=== PATIENT | female | born 1970 | race Caucasian/White ===

== ENCOUNTER 2020-07-06 15:31 | Outpatient (REF) | payer OTHER, SELFPAY ==
--- NOTE | 2020-07-06 | MM_ITS ---
EXAMINATION: MM SCREENING DIGITAL BREAST TOMOSYNTHESIS, BILATERAL CLINICAL INFORMATION: Screening. Asymptomatic. The lifetime risk of breast cancer based on the Tyrer-Cuzick Model is 12%. COMPARISON: Mammography: 07/13/2019, 07/01/2019, 06/14/2018, 05/08/2017; ultrasound left breast 07/13/2019 TECHNIQUE: Digital breast tomosynthesis is performed in both the craniocaudal and mediolateral oblique views along with computer-aided detection (CAD). Synthesized 2D images are generated from the tomosynthesis. Additional right CC view is provided. FINDINGS: There are scattered areas of fibroglandular density (ACR BI-RADS breast composition Category b). There is a nodule posterior 5:00 o'clock left breast corresponding to the simple cyst on targeted ultrasound. Neither breast shows interval mass or architectural abnormality or abnormal calcifications. The skin contours are smooth. No significant changes. IMPRESSION: No significant changes from prior studies. Nodule posterior 5:00 left breast corresponding to simple cyst on targeted ultrasound. ASSESSMENT: BI-RADS 2: Benign RECOMMENDATION: Routine annual mammography screening. This patient's information was entered into a reminder system with a target due date for their next mammogram.
== END 2020-07-06 15:32 | disposition home or self-care (01) ==
LOC: HO.MAMMO 15:31
PROVIDERS: Visit Provider Internal Medicine
DX: Z12.31 Encounter for screening mammogram for malignant neoplasm of breast (principal)
CPT/HCPCS: 77063; 77067; 78014

== ENCOUNTER 2021-07-17 08:15 | Outpatient (REF) | payer OTHER, SELFPAY ==
[2021-07-17 09:18] LABS: Hematocrit 41.5 % (37-47); Hemoglobin 13.8 g/dl (12.0-16.0); Mean Corpuscular HGB Conc 33.3 g/dl (31.0-35.0); Mean Corpuscular Hemoglobin 31.9 pg (27.0-33.0); Mean Corpuscular Volume 95.8 fL (80-98); Mean Platelet Volume 10.4 fL (9.4-12.3); Platelet Count 274 X10*3/uL (160-400); Red Blood Count 4.33 X10*6/uL (4.20-5.50); Red Cell Distribution Width 12.3 % (11.0-16.0); White Blood Count 5.5 X10*3/uL (4.8-10.8)
[2021-07-17 09:41] LABS: Anion Gap 11 (12-20); Blood Urea Nitrogen 15 mg/dL (9-16); Calcium 9.6 mg/dL (8.4-10.2); Carbon Dioxide 27 mmol/L (22-29); Chloride 103 mmol/L (96-108); Estimated Glomerular Filt Rate > 60; Glucose Fasting 88 mg/dL (60-99); Potassium 4.4 mmol/L (3.3-5.1); Sodium 137 mmol/L (135-145)
[2021-07-17 09:50] LABS: Alanine Aminotransferase 14 U/L (0-31); Albumin Level 4.6 g/dL (3.5-5.0); Alkaline Phosphatase 55 U/L (39-117); Anion Gap 13 (12-20); Aspartate Amino Transferase 20 U/L (5-31); Bilirubin Direct 0.4 mg/dL (0.0-0.5); Blood Urea Nitrogen 15 mg/dL (9-16); Calcium 9.7 mg/dL (8.4-10.2); Carbon Dioxide 25 mmol/L (22-29); Chloride 103 mmol/L (96-108); Estimated Glomerular Filt Rate > 60; Glucose Fasting 89 mg/dL (60-99); Potassium 4.5 mmol/L (3.3-5.1); Sodium 136 mmol/L (135-145); Total Protein 7.3 g/dL (6.5-8.0)
[2021-07-17 10:34] LABS: Folate 19.2 ng/mL (> or = 4.0); Vitamin B12 1819 pg/mL (200-900)
[2021-07-21 14:26] LABS: Vitamin B6 33.3 ng/mL (2.1-21.7)
[2021-07-22 12:47] LABS: Vitamin D 25-OH, D2 <4 ng/mL; Vitamin D 25-OH, D3 59 ng/mL; Vitamin D 25-OH, Total 59 ng/mL (30-100)
== END 2021-07-17 08:16 | disposition home or self-care (01) ==
LOC: HO.LAB 08:15
PROVIDERS: Visit Provider Hospitalist
DX: Z00.00 Encounter for general adult medical examination without abnormal findings (principal); Z63.79 Other stressful life events affecting family and household
CPT/HCPCS: 36415; 80048; 80053; 80076; 82248; 82306; 82607; 82746; 83735; 84207; 85027

== ENCOUNTER 2021-10-08 09:04 | Outpatient (REF) | payer OTHER, SELFPAY ==
[2021-10-08 13:01] LABS: Folate > 20.0 ng/mL (> or = 4.0); Vitamin B12 1313 pg/mL (200-900)
[2021-10-13 10:47] LABS: Vitamin B6 35.5 ng/mL (2.1-21.7)
== END 2021-10-08 09:05 | disposition home or self-care (01) ==
LOC: HO.WFDLDS 09:04
PROVIDERS: Visit Provider Hospitalist
DX: R74.8 Abnormal levels of other serum enzymes (principal)
CPT/HCPCS: 36415; 82607; 82746; 84207

== ENCOUNTER 2021-10-19 10:04 | Outpatient (REF) | payer OTHER, SELFPAY ==
--- NOTE | ~2021-10-19 | MM_ITS ---
EXAMINATION: MM SCREENING DIGITAL BREAST TOMOSYNTHESIS, BILATERAL CLINICAL INFORMATION: Screening. Asymptomatic. The lifetime risk of breast cancer based on the Tyrer-Cuzick Model is 14%. COMPARISON: Mammography: 07/06/2020, 07/13/2019, 07/01/2019, 06/14/2018, 05/08/2017, ultrasound left breast 07/13/2019 TECHNIQUE: Digital breast tomosynthesis is performed in both the craniocaudal and mediolateral oblique views along with computer-aided detection (CAD). Synthesized 2D images are generated from the tomosynthesis. FINDINGS: There are scattered areas of fibroglandular density (ACR BI-RADS breast composition Category b). There are no significant masses, abnormal calcifications, or other abnormalities. Small cyst again noted mid 5:00 left breast. There is no architectural abnormality. The axilla and skin contours are unremarkable. MM/MM tomosynthesis screening BI IMPRESSION: No mammographic evidence of malignancy. ASSESSMENT: BI-RADS 2: Benign RECOMMENDATION: Routine annual mammography screening. This patient's information was entered into a reminder system with a target due date for their next mammogram.
== END 2021-10-19 10:05 | disposition home or self-care (01) ==
LOC: HO.MAMMO 10:04
PROVIDERS: Visit Provider Obstetrics & Gynecology
DX: Z12.31 Encounter for screening mammogram for malignant neoplasm of breast (principal)
CPT/HCPCS: 77063; 77067

== ENCOUNTER 2022-07-02 15:12 | Outpatient (REF) | payer OTHER, SELFPAY ==
[2022-07-02 16:24] LABS: Vitamin B12 750 pg/mL (200-900)
== END 2022-07-02 15:13 | disposition home or self-care (01) ==
LOC: HO.LAB 15:12
PROVIDERS: PCP Hospitalist; Visit Provider Hospitalist
DX: R74.8 Abnormal levels of other serum enzymes (principal)
CPT/HCPCS: 36415; 82607

== ENCOUNTER 2022-08-06 08:47 | Outpatient (REF) | payer OTHER, SELFPAY ==
[2022-08-06 12:05] LABS: Hematocrit 40.8 % (37.0-47.0); Hemoglobin 13.3 g/dl (12.0-16.0); Mean Corpuscular HGB Conc 32.6 g/dl (31.0-35.0); Mean Corpuscular Hemoglobin 30.9 pg (27.0-33.0); Mean Corpuscular Volume 94.9 fL (80.0-98.0); Mean Platelet Volume 11.1 fL (9.4-12.3); Platelet Count 296 X10*3/uL (160-400); Red Cell Distribution Width 12.4 % (11.0-16.0); White Blood Count 6.9 X10*3/uL (4.8-10.8)
[2022-08-06 12:43] LABS: Alanine Aminotransferase 13 U/L (0-31); Albumin Level 4.5 g/dL (3.5-5.0); Alkaline Phosphatase 59 U/L (39-117); Anion Gap 15 (12-20); Aspartate Amino Transferase 17 U/L (5-31); Bilirubin Total 0.5 mg/dL (0.0-1.0); Blood Urea Nitrogen 13 mg/dL (9-16); Calcium 10.1 mg/dL (8.4-10.2); Carbon Dioxide 26 mmol/L (22-29); Chloride 103 mmol/L (96-108); Cholesterol 198 mg/dL; Estimated Glomerular Filt Rate 54; Glucose Fasting 88 mg/dL (60-99); HDL Cholesterol 73 mg/dL; LDL Cholesterol Calculated 113 mg/dl; Potassium 4.6 mmol/L (3.3-5.1); Sodium 139 mmol/L (135-145); Total Protein 7.1 g/dL (6.5-8.0); Triglycerides 61 mg/dL
[2022-08-06 12:45] LABS: TSH reflex Free T4 1.74 uIU/mL (0.32-4.0)
[2022-08-06 12:57] LABS: Vitamin B12 885 pg/mL (200-900)
[2022-08-10 16:47] LABS: Vitamin B6 30.8 ng/mL (2.1-21.7)
[2022-08-10 16:51] LABS: Vitamin D 25-OH, D2 <4 ng/mL; Vitamin D 25-OH, D3 44 ng/mL; Vitamin D 25-OH, Total 44 ng/mL (30-100)
== END 2022-08-06 08:48 | disposition home or self-care (01) ==
LOC: HO.WFDLDS 08:47
PROVIDERS: Visit Provider Hospitalist
DX: Z00.00 Encounter for general adult medical examination without abnormal findings (principal); R74.8 Abnormal levels of other serum enzymes; G47.9 Sleep disorder, unspecified; Z63.79 Other stressful life events affecting family and household
CPT/HCPCS: 36415; 80053; 80061; 82306; 82607; 84207; 84443; 85027

== ENCOUNTER 2022-11-01 08:10 | Outpatient (REF) | payer OTHER, SELFPAY ==
--- NOTE | ~2022-11-01 | MM_ITS ---
EXAMINATION: MM SCREENING DIGITAL BREAST TOMOSYNTHESIS, BILATERAL CLINICAL INFORMATION: Screening. Asymptomatic. The lifetime risk of breast cancer based on the Tyrer-Cuzick Model is 14%. COMPARISON: Mammography: 10/19/2021, 07/06/2020, 07/13/2019, 07/01/2019, left breast ultrasound 07/13/2019. TECHNIQUE: Digital breast tomosynthesis is performed in both the craniocaudal and mediolateral oblique views along with computer-aided detection (CAD). Synthesized 2D images are generated from the tomosynthesis. FINDINGS: There are scattered areas of fibroglandular density (ACR BI-RADS breast composition Category b). There are no significant masses, abnormal calcifications, or other abnormalities. Parenchymal pattern is similar to prior studies. There is no developing density or architectural abnormality. Small oval cyst posterior 6:00 left breast is decreased in size since 2019. The axilla and skin contours are unremarkable. No significant changes. MM/MM tomosynthesis screening BI IMPRESSION: No mammographic evidence of malignancy. ASSESSMENT: BI-RADS 2: Benign RECOMMENDATION: Routine annual mammography screening. This patient's information was entered into a reminder system with a target due date for their next mammogram.
== END 2022-11-01 08:11 | disposition home or self-care (01) ==
LOC: HO.MAMMO 08:10
PROVIDERS: PCP Hospitalist; Visit Provider Obstetrics & Gynecology
DX: Z12.31 Encounter for screening mammogram for malignant neoplasm of breast (principal)
CPT/HCPCS: 77063; 77067

== ENCOUNTER 2023-08-18 08:22 | Outpatient (AMB) | payer OTHER, SELFPAY ==
[2023-08-18 08:29] VITALS: BP 96/68; PULSE 98; RESP 14; TEMP 37.1; O2SAT 98; BMI 23.4
--- NOTE | 2023-08-18 08:29 | MHC.PC.OV ---
Vital Signs 08/18/23 08:29 Height 5 ft 2 in Weight 128 lb BMI 23.4 BP 96/68 Blood Pressure Location Rt brachial Position Sitting Respiration 14 Pulse 98 Pulse Source Pulse Oximeter Temp 98.8 F Temp Source Oral Pulse Oximetry (%) 98 Oxygen Delivery Method Room Air Intake Visit Reasons: Physical Exam Intake Note: Patient is here for her physical exam. Patient reports she has a cold that started yesterday with a sore throat and a slight cough. Patient reports watering eyes and exhaustion are associated. Trust Operations Assistant Required: No Accompanied by: Self / Same As Patient Allergies oxycodone Allergy (Severe, Verified 08/18/23 08:45) Vomiting prochlorperazine [From Compazine] Allergy (Mild, Verified 08/18/23 08:45) could not move her eyes Medication List - Last Reconciled 08/18/23 by Jaylan Fofana CNP cyclobenzaprine 10 mg PO TID PRN fluticasone propionate 50 mcg/actuation (Flonase Allergy Relief) 1 spray intranasal DAILY melatonin 10 mg PO BEDTIME PRN peg 3350-electrolytes 236-22.74-6.74 -5.86 gram 240 mL PO Q10M Tobacco use date assessed: 08/18/23 Dental Screening Dental Screen Date: 08/18/23 Did you have a dental visit in the last 12 months?: Yes Was dental information given to patient?: Patient has dentist HPI HPI Comments History of Present Illness Details 53-year-old female presents for an extended physical exam and transfer of care Her former PCP is DORETHA who is no longer with the practice. Last office visit and blood work was over a year ago She has past medical history of DJD of left shoulder and sleep disturbance. She reports cold symptoms for the past 3 days. She reports sore throat, nonproductive cough, and fatigue. She took Zicam yesterday and had a negative rapid covid test. She reports positive sick contacts from her workplace. She notes feeling very anxious and tired since June,. She notes that she does not know what's triggering her symptoms. She notes that her symptoms may be attributed be being relocated to a new environment with new coworkers for work in June. She also notes that she has been helping with providing care for her boyfriend's mother who is chronically ill. She admits to exercising 3-4 times weekly. [facility] Surgical History History of appendectomy History of tubal ligation Family History Father No problems noted. 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 1. Little interest or pleasure in doing things: several days 2. Feeling down, depressed, or hopeless: several days 3. Trouble falling or staying asleep, or sleeping too much: nearly every day 4. Feeling tired or having little energy: nearly every day 5. Poor appetite or overeating: more than half the days 6. Feeling bad about yourself - or that you are a failure or have let yourself or your family down: more than half the days 7. Trouble concentrating on things, such as reading the newspaper or watching television: more than half the days 8. Moving or speaking so slowly that other people could have noticed. Or the opposite - being so fidgety or restless that you have been moving around a lot more than usual: several days 9. Thoughts that you would be better off or of hurting yourself in some way: not at all Total score: 15 Depression Screening Interpretation: Positive Depression Screening Follow-up: Existing condition and New Medication prescribed Depression Screening Done: Yes 90882 - PHQ-9 Billing: Yes Source: Developed by Drs. Cuba Valdez, Sade Molina, Tony Berrios and colleagues, with an educational rodrick from [employer] Thrive Questionnaire Date Thrive assessed: 08/18/23 I am a: Patient What is your living situation today?: I have a steady place to live Within the past 12 months, did the food you bought not last and you didn't have the money to get more?: Never true Within the past 12 months, did you worry whether your food would run out before you got money to buy more?: Never true Do you have trouble paying for medicines?: No Do you have trouble getting transportation to medical appointments?: No Do you have trouble paying your heating and electricity bill?: No Do you have trouble taking care of your child, family member or friend?: No Do you have trouble with day-to-day activities such as bathing, preparing meals, shopping, managing finances, etc.?: No Are you currently unemployed and looking for a job?: No Please select the resources that you would like help with: None Currently or been in a relationship where the following occur: no concerns reported AUDIT C Alcohol Use Questionnaire (AUDIT-C) 1. How often do you have a drink containing alcohol?: Monthly or less 2. How many drinks containing alcohol do you have on a typical day when you are drinking?: 1 or 2 3. How often do you have six or more drinks on one occasion?: Never Total Score: 1 SANDIE-7 AMB Questionnaire SANDIE-7 Date SANDIE - 7 assessed: 08/18/23 Feeling nervous, anxious, or on edge: 3 = Nearly every day Not being able to stop or control worryin = Nearly every day Worrying too much about different things: 3 = Nearly every day Trouble relaxin = Nearly every day Being so restless that it is hard to sit still: 3 = Nearly every day Becoming easily annoyed or irritable: 3 = Nearly every day Feeling afraid as if something awful might happen: 3 = Nearly every day Total SANDIE-7 score (0-4 normal; 5-9 mild; 10-14 moderate; 15-21 severe): 21 Source: Developed by Drs. Cuba Valdez, Sade Molina, Tony Berrios and colleagues, with an educational rodrick from [employer] SANDIE-7 Assessment Billing SANDIE-7 Assessment Tool: SANDIE-7 Assessment 82973 Review of Systems Const Details: Const Denies chills, Reports fatigue, Denies fever(s), Denies headache(s) and Denies weakness ENT Reports as per HPI Card Denies chest pain, Denies lightheadedness, Denies dyspnea and Denies other (Palpitations) Resp Denies cough, Denies dyspnea, Denies wheezing and Denies other ( shortness of breath) GI Denies abdominal pain, Denies melena, Denies hematochezia, Denies change in bowel habits, Denies dyspepsia and Denies nausea Denies hematuria and Denies dysuria Musc Denies abnormal gait, Denies myalgias, Denies arthralgias, Denies numbness and Denies tingling Skin/Breast Denies rash, Denies unusual bruising and Denies wounds Neuro Denies abnormal gait, Denies dizziness, Denies headache(s), Denies memory loss, Denies numbness, Denies Sensory deficit (Neuro), Denies tingling and Denies weakness Psych Reports anxiety, Denies depression, Denies memory loss Endo Denies cold intolerance, Reports fatigue, Denies heat intolerance, Denies polydipsia and Denies polyuria Aller/Immun Denies wheezing Physical exam (Primary Care) Vital Signs: Last Vital Signs Temp 98.8 F 08/18/23 08:29 Pulse 98 08/18/23 08:29 Resp 14 08/18/23 08:29 BP 96/68 08/18/23 08:29 Pulse Ox 98 08/18/23 08:29 Oxygen Delivery Method Room Air 08/18/23 08:29 BMI result Body Mass Index 23.4 Tobacco/Smoking Status: Tobacco use Status Tobacco use date assessed 08/18/23 08/18/23 08:40 Patient Tobacco Use Status Former Tobacco user 08/18/23 08:42 e-Cigarette/Vaping Use Never Used 08/18/23 08:42 PHQ-9: PHQ-9 Score PHQ-9: Total score 15 08/18/23 09:30 Depression Screening Interpretation: Positive Depression Screening Follow-up: Existing condition and New Medication prescribed Thrive Assessment: Date of Thrive Assessment Date Thrive assessed 08/18/23 08/18/23 08:46 Currently or been in a relationship where the following occur: no concerns reported Const Other: General: no acute distress and well developed Nutritional Appearance: well nourished Orientation/consciousness: patient oriented x3 HENMT Head is normocephalic Bilateral ear canal and TM are normal Nasal turbinates and oropharynx are pink and moist Sinuses are nontender with palpation No auricular or cervical lymphadenopathy Eyes General: appearance normal, both eyes and all related structures Pupils: Equal, round and reactive pupils present EOM: EOMs intact bilaterally Resp Effort & Inspection: normal respiratory effort Auscultation: clear to auscultation bilaterally Cardio Rate: regular rate Rhythm: regular rhythm Heart sounds: S1 normal heart sound present, S2 normal heart sound present, no gallops, no murmurs and no rubs GI Palpation (GI): No Abdominal aortic bruit present, Soft to palpation, nontender, No hepatosplenomegaly present and No Rebound tenderness present Auscultation: normal bowel sounds General: Yes no CVA tenderness Back/Spine/Pelvis Back: no CVA tenderness Cervical Spine: cervical ROM normal and No Cervical spine tenderness Thoracic/Lumbar Spine: thoraco-lumbar ROM normal, No pain with thoraco-lumbar ROM, No thoracic spinal tenderness and No lumbar spinal tenderness Extrem General: Yes normal to inspection, No edema and No calf tenderness Skin General: warm and dry. Normal skin color. Normal skin turgor Neuro General: patient oriented x3, gait normal and no focal neuro deficit Cranial nerves: Yes Equal, round and reactive pupils present Cognition (Neuro): normal cognition Gait exam (Neuro): Normal gait present Sensory Exam: No Sensory deficit (Neuro) Psych Appearance: grossly normal Affect: normal affect Attitude: cooperative Thought process: Normal thought process present Results AMB Rapid Strep AMB Rapid Strep Negative Last Edit by Ernestina Jerry CMA on 08/18/23 09:31 Assessment and Plan Assessment & Plan (1) Anxiety and depression: Code(s): F41.9 - Anxiety disorder, unspecified; F32.A - Depression, unspecified Plan: Reports increased anxiousness for the past 2 months, no specific triggers, however, symptoms may be related to new work environment/coworkers and chronic illness of a family member She was tearful on and off during the interview She denies SI/HI or domestic violence PHQ-9 and SANDIE-7 scores revealed moderately severe depression and severe anxiety respectively Hydroxyzine ordered. Take as prescribed Routine exercise encouraged She met with the community navigator who will refer her to a therapist Follow-up in 2 weeks or return sooner with worsening or new symptoms Encouraged to get fasting blood work done in preparation for an extended physical exam Verbalized understanding and agreed with treatment plan. Complete physical exam deferred at this time. Routine fasting blood work ordered in preparation for her physical exam. (2) Viral upper respiratory illness: Code(s): J06.9 - Acute upper respiratory infection, unspecified Plan: Likely viral illness though possibly allergies. No exam evidence of bacterial infection. Rapid strep test is negative Viral illness There is no antibiotic medication for viruses.? They must run their course.? Most average 5-7 days but 7-10 days is not uncommon and up to 14 days is still possible.? A cough is often the last symptom to resolve and this can last for weeks in some cases. Rest Hydrate well -? Drink plenty of fluids.? Especially water. Tylenol or ibuprofen for muscle aches, headache, fever/discomfort Cannot rule out COVID-19/RSV/Flu infection Nasal swab acquired and will be sent to the lab Return for new or worsening symptoms Verbalized understanding and agreed with treatment plan. (3) Laboratory tests ordered as part of a complete physical exam (CPE): Code(s): Z00.00 - Encounter for general adult medical examination without abnormal findings Plan: Fasting labs ordered as part of a complete physical exam. Advised to fast for at least 10 hours before getting labs drawn. May drink water Verbalized understanding and agreed with treatment plan. Orders: Orders Complete Blood Count Auto Diff Today Z00.00 - Encounter for general adult medical examination without abnormal findings Comprehensive [place]. Panel Fast Today Z00.00 - Encounter for general adult medical examination without abnormal findings Lipid Panel Today Z00.00 - Encounter for general adult medical examination without abnormal findings TSH reflex Free T4 Today Z00.00 - Encounter for general adult medical examination without abnormal findings UA CC w/rflx Micro + Cult Today Z00.00 - Encounter for general adult medical examination without abnormal findings SARS-CoV2/FLU/RSV Today J06.9 - Acute upper respiratory infection, unspecified AMB Rapid Strep Screen Today J06.9 - Acute upper respiratory infection, unspecified Medications: New hydroxyzine HCl 25 mg PO TID 30 days PRN 90 tabs 1RF anxiety Coding Level of Care Code Est Pt Level 4 (32333) Diagnoses Anxiety and depression F41.9; F32.A Viral upper respiratory illness J06.9 Laboratory tests ordered as part of a complete physical exam (CPE) Z00.00 Additional Codes SANDIE-7 Assessment Billing - SANDIE-7 Assessment Tool: SANDIE-7 Assessment [id number] ([id number])
== END 2023-08-18 09:55 | disposition home or self-care (01) ==
PROVIDERS: PCP Hospitalist; Visit Provider Nurse Practitioner Family
DX: J06.9 Acute upper respiratory infection, unspecified (principal); F41.9 Anxiety disorder, unspecified; F32.A Depression, unspecified
CPT/HCPCS: 96127; 99214

== ENCOUNTER 2023-08-18 09:20 | Outpatient (REF) | payer OTHER, SELFPAY ==
[2023-08-18 14:37] LABS: Influenza A PCR NEGATIVE (Negative); Influenza B PCR NEGATIVE (Negative); Resp Syncy Virus RNA Qual PCR NEGATIVE (Negative); SARS COV2 PCR INHOUSE NEGATIVE (Negative)
== END 2023-08-18 09:21 | disposition home or self-care (01) ==
LOC: HO.LAB 09:20
PROVIDERS: Visit Provider Nurse Practitioner Family
DX: J06.9 Acute upper respiratory infection, unspecified (principal); Z11.52 Encounter for screening for COVID-19
CPT/HCPCS: 0241U

== ENCOUNTER 2023-09-01 06:53 | Outpatient (REF) | payer OTHER, SELFPAY ==
[2023-09-01 07:05] LABS: MANUAL DIFF FLAG NO
[2023-09-01 07:35] LABS: Basophils Absolute Auto 0.1 X10*3/uL (0.0-0.2); Basophils Percent Auto 0.8 % (0-2); Eosinophils Absolute Auto 0.1 X10*3/uL (0.0-0.4); Eosinophils Percent Auto 2.3 % (0-4); Hematocrit 39.4 % (37.0-47.0); Hemoglobin 13.1 g/dl (12.0-16.0); Imm Gran Abs Auto 0.01 X10*3/uL (0.00-0.03); Imm Gran Pct Auto 0.2 % (0.0-0.4); Lymphocytes Absolute Auto 2.9 X10*3/uL (1.2-4.9); Lymphocytes Percent Auto 47.4 % (20-40); Mean Corpuscular HGB Conc 33.2 g/dl (31.0-35.0); Mean Corpuscular Volume 96.1 fL (80.0-98.0); Mean Platelet Volume 10.5 fL (9.4-12.3); Monocytes Absolute Auto 0.6 X10*3/uL (0.1-1.2); Monocytes Percent Auto 9.2 % (2-11); Neutrophils Absolute Auto 2.4 x10*3/uL (2.0-8.3); Neutrophils Percent Auto 40.1 % (45-73); Platelet Count 288 X10*3/uL (160-400); Red Cell Distribution Width 11.8 % (11.0-16.0); White Blood Count 6.1 X10*3/uL (4.8-10.8)
[2023-09-01 07:46] LABS: Appearance Urine Cloudy; Color Urine Yellow; Glucose Urine UA Negative (Negative); Leukocyte Esterase Urine Negative (Negative); Nitrite Urine Negative (Negative); PH 5.5 (5.0-9.0); Specific Gravity - Urine >= 1.030 (1.005-1.025); Urine Blood Negative (Negative); Urine Ketones Trace mg/dL (Negative); Urine Protein Negative (Neg-Trace)
[2023-09-01 08:27] LABS: Alanine Aminotransferase 15 U/L (0-31); Albumin Level 4.2 g/dL (3.5-5.0); Alkaline Phosphatase 58 U/L (39-117); Aspartate Amino Transferase 19 U/L (5-31); Bilirubin Total 0.5 mg/dL (0.0-1.0); Blood Urea Nitrogen 16 mg/dL (9-16); Carbon Dioxide 28 mmol/L (22-29); Cholesterol 185 mg/dL (<200); Estimated Glomerular Filt Rate > 60; Glucose Fasting 91 mg/dL (60-99); HDL Cholesterol 61 mg/dL (>40); LDL Cholesterol Calculated 113 mg/dL (<100); TSH reflex Free T4 2.08 uIU/mL (0.32-4.0); Total Protein 6.7 g/dL (6.5-8.0); Triglycerides 55 mg/dL (<150)
[2023-09-01 08:49] LABS: Anion Gap 10 (12-20); Chloride 107 mmol/L (96-108); Sodium 141 mmol/L (135-145)
== END 2023-09-01 06:54 | disposition home or self-care (01) ==
LOC: HO.LAB 06:53
PROVIDERS: PCP Nurse Practitioner Family; Visit Provider Nurse Practitioner Family
DX: Z00.00 Encounter for general adult medical examination without abnormal findings (principal); Z86.711 Personal history of pulmonary embolism
CPT/HCPCS: 36415; 80053; 80061; 81003; 84443; 85025

== ENCOUNTER 2023-09-01 09:56 | Outpatient (AMB) | payer OTHER, SELFPAY ==
[2023-09-01 10:05] VITALS: BP 114/64; PULSE 84; RESP 13; TEMP 36.4; O2SAT 99; BMI 24.2
--- NOTE | 2023-09-01 10:05 | A.OFFPC_ITS ---
Vital Signs 09/01/23 10:05 Height 5 ft 2 in Weight 132 lb 3 oz BMI 24.2 BP 114/64 Blood Pressure Location Lt brachial Position Sitting Respiration 13 Pulse 84 Pulse Source Pulse Oximeter Temp 97.6 F Temp Source Temporal Artery Scan Pulse Oximetry (%) 99 Oxygen Delivery Method Room Air Intake Visit Reasons: anxiety/depression Intake Note: Patient would like to go over labs that were done and resulted today if there is time. Children Counselor Required: No Accompanied by: Self / Same As Patient Allergies oxycodone Allergy (Severe, Verified 09/01/23 10:43) Vomiting prochlorperazine [From Compazine] Allergy (Mild, Verified 09/01/23 10:43) could not move her eyes Medication List - Last Reconciled 09/01/23 by Jaylan Fofana CNP cyclobenzaprine 10 mg PO TID PRN fluticasone propionate 50 mcg/actuation (Flonase Allergy Relief) 1 spray intranasal DAILY hydroxyzine HCl 25 mg PO TID PRN 30 days melatonin 10 mg PO BEDTIME PRN peg 3350-electrolytes 236-22.74-6.74 -5.86 gram 240 mL PO Q10M Tobacco use date assessed: 08/18/23 Dental Screening Dental Screen Date: 09/01/23 Did you have a dental visit in the last 12 months?: Yes Did you have a dental problem in the last 6 months where you did not have access to dental care?: No Was dental information given to patient?: Patient has dentist HPI HPI Comments History of Present Illness Details 53-year-old female presents for anxiety and depression follow-up She was evaluated at the office for anxiety and depression 2 weeks ago. Hydroxyzine was prescribed She notes that she has been taking Hydroxyzine only at night with significant improvement of her anxiety symptoms. She notes that she has been experiencing frequent hot flashes at night on and off since for the past 3 years. She states that she her symptoms have been frequent recently. She has an appointment with her ob/gym at [facility] tomorrow and plans to discuss her symptoms with her. She states that she was prescribed Gabapentin for hot flashes but was ineffective. [facility] Medical History (Updated 09/01/23 @ 11:00 by Jaylan Fofana CNP) No pertinent past medical history Surgical History History of appendectomy History of tubal ligation Family History Father No problems noted. 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 1. Little interest or pleasure in doing things: several days 2. Feeling down, depressed, or hopeless: several days 3. Trouble falling or staying asleep, or sleeping too much: several days 4. Feeling tired or having little energy: several days 5. Poor appetite or overeating: not at all 6. Feeling bad about yourself - or that you are a failure or have let yourself or your family down: several days 7. Trouble concentrating on things, such as reading the newspaper or watching television: not at all 8. Moving or speaking so slowly that other people could have noticed. Or the opposite - being so fidgety or restless that you have been moving around a lot more than usual: not at all 9. Thoughts that you would be better off or of hurting yourself in some way: not at all Total score: 5 Depression Screening Interpretation: Positive Depression Screening Done: Yes 64462 - PHQ-9 Billing: Yes Source: Developed by Drs. Cuba Valdez, Sade Molina, Tony Berrios and colleagues, with an educational rodrick from [employer]. Thrive Questionnaire Date Thrive assessed: 08/18/23 SANDIE-7 AMB Questionnaire SANDIE-7 Date SANDIE - 7 assessed: 09/01/23 Feeling nervous, anxious, or on edge: 1 = Several days Not being able to stop or control worryin = Several days Worrying too much about different things: 1 = Several days Trouble relaxin = Several days Being so restless that it is hard to sit still: 0 = Not at all Becoming easily annoyed or irritable: 1 = Several days Feeling afraid as if something awful might happen: 1 = Several days Total SANDIE-7 score (0-4 normal; 5-9 mild; 10-14 moderate; 15-21 severe): 6 Source: Developed by Drs. Cuba Valdez, Sade Molina, Tony Berrios and colleagues, with an educational rodrick from [employer]. SANDIE-7 Assessment Billing SANDIE-7 Assessment Tool: SANDIE-7 Assessment 72502 Review of Systems Const Details: Const Denies chills, Denies fatigue, Denies fever(s), Denies headache(s) and Denies weakness ENT Denies dizziness and Denies headache(s) Card Denies chest pain, Denies lightheadedness, Denies dyspnea and Denies other (Palpitations) Resp Denies cough, Denies dyspnea, Denies wheezing and Denies other ( shortness of breath) GI Denies abdominal pain, Denies melena, Denies hematochezia, Denies change in b owel habits, Denies dyspepsia and Denies nausea Denies hematuria and Denies dysuria Musc Denies abnormal gait, Denies myalgias, Denies arthralgias, Denies numbness and Denies tingling Skin/Breast Denies rash, Denies unusual bruising and Denies wounds Neuro Denies abnormal gait, Denies dizziness, Denies headache(s), Denies memory loss, Denies numbness, Denies Sensory deficit (Neuro), Denies tingling and Denies weakness Psych Denies anxiety, Denies depression, Denies memory loss Endo Denies cold intolerance, Denies fatigue, Denies heat intolerance, Denies polydipsia and Denies polyuria Aller/Immun Denies wheezing Physical exam (Primary Care) Vital Signs: Last Vital Signs Temp 97.6 F 09/01/23 10:05 Pulse 84 09/01/23 10:05 Resp 13 09/01/23 10:05 BP 114/64 09/01/23 10:05 Pulse Ox 99 09/01/23 10:05 Oxygen Delivery Method Room Air 09/01/23 10:05 BMI result Body Mass Index 24.2 Tobacco/Smoking Status: Tobacco use Status Tobacco use date assessed 08/18/23 09/01/23 10:11 Patient Tobacco Use Status Former Tobacco user 09/01/23 10:11 e-Cigarette/Vaping Use Never Used 09/01/23 10:11 PHQ-9: PHQ-9 Score PHQ-9: Total score 5 09/01/23 10:15 Depression Screening Interpretation: Positive Thrive Assessment: Date of Thrive Assessment Date Thrive assessed 08/18/23 09/01/23 10:11 Const Other: General: no acute distress and well developed Nutritional Appearance: well nourished Orientation/consciousness: patient oriented x3 HENMT Head: Yes normocephalic and Yes atraumatic Eyes General: appearance normal, both eyes and all related structures Pupils: Equal, round and reactive pupils present EOM: EOMs intact bilaterally Resp Effort & Inspection: normal respiratory effort Auscultation: clear to auscultation bilaterally Cardio Rate: regular rate Rhythm: regular rhythm Heart sounds: S1 normal heart sound present, S2 normal heart sound present, no gallops, no murmurs and no rubs GI Palpation (GI): No Abdominal aortic bruit present, Soft to palpation, nontender, No hepatosplenomegaly present and No Rebound tenderness present Auscultation: normal bowel sounds General: Yes no CVA tenderness Back/Spine/Pelvis Back: no CVA tenderness Cervical Spine: cervical ROM normal and No Cervical spine tenderness Thoracic/Lumbar Spine: thoraco-lumbar ROM normal, No pain with thoraco-lumbar ROM, No thoracic spinal tenderness and No lumbar spinal tenderness Extrem General: Yes normal to inspection, No edema and No calf tenderness Skin General: warm and dry. Normal skin color. Normal skin turgor Lesions: no lesions Rashes: no rashes Trauma: no lacerations or abrasions Wounds: no wounds Nails: normal Neuro General: patient oriented x3, gait normal and no focal neuro deficit Cranial nerves: Yes Equal, round and reactive pupils present Cognition (Neuro): normal cognition Gait exam (Neuro): Normal gait present Sensory Exam: No Sensory deficit (Neuro) Psych Appearance: grossly normal Affect: normal affect Attitude: cooperative Thought process: Normal thought process present Assessment and Plan Assessment & Plan (1) Anxiety and depression: Code(s): F41.9 - Anxiety disorder, unspecified; F32.A - Depression, unspecified Plan: Reports improved anxiety and depression symptoms on hydroxyzine PHQ-9 and SANDIE-7 scores revealed mild depression and anxiety Continue with current treatment regimen Routine exercise encouraged Recent lab results reviewed with the patient: unremarkable Follow-up in 1 month for an extended physical exam Return sooner with worsening or new symptoms Verbalized understanding and agreed with treatment plan (2) Vasomotor symptoms due to menopause: Code(s): N95.1 - Menopausal and female climacteric states Plan: Reports history of hot flashes on and off for the past 3 years. Her symptoms have been more frequent recently. She has an appointment with her translator and interpreter provider to more and intends to discuss the symptoms Encouraged follow-up with translator and interpreter as planned Return with new or worsening symptoms Verbalized understanding and agreed with treatment plan Coding Level of Care Code Est Pt Level 3 (14821) Diagnoses Anxiety and depression F41.9; F32.A Vasomotor symptoms due to menopause N95.1 Additional Codes SANDIE-7 Assessment Billing - SANDIE-7 Assessment Tool: SANDIE-7 Assessment 97339 ([id number])
== END 2023-09-01 11:01 | disposition home or self-care (01) ==
PROVIDERS: PCP Hospitalist; Visit Provider Nurse Practitioner Family
DX: F41.9 Anxiety disorder, unspecified (principal); F32.A Depression, unspecified; N95.1 Menopausal and female climacteric states
CPT/HCPCS: 96127; 99213

== ENCOUNTER 2023-10-08 08:16 | Outpatient (AMB) | payer OTHER, SELFPAY ==
--- NOTE | 2023-10-08 08:18 | MHC.PC.OV ---
Vital Signs 10/08/23 08:24 Height 5 ft 2 in Weight 133 lb 2 oz BMI 24.3 BP 102/56 L Blood Pressure Location Lt brachial Position Sitting Respiration 18 Pulse 66 Pulse Source Pulse Oximeter Pulse Oximetry (%) 99 Oxygen Delivery Method Room Air Intake Visit Reasons: CPE Intake Note: Patient is here for her physical and she reports she has no concerns at this time. Patient wants to inform her provider she has started HRT with her obgyn as of 09/02/23. Treatment Counselor Required: No Accompanied by: Self / Same As Patient Allergies oxycodone Allergy (Severe, Verified 10/08/23 08:44) Vomiting prochlorperazine [From Compazine] Allergy (Mild, Verified 10/08/23 08:44) could not move her eyes Medication List - Last Reconciled 10/08/23 by Jaylan Fofana CNP cyclobenzaprine 10 mg PO TID PRN fluticasone propionate 50 mcg/actuation (Flonase Allergy Relief) 1 spray intranasal DAILY hydroxyzine HCl 25 mg PO TID PRN 30 days peg 3350-electrolytes 236-22.74-6.74 -5.86 gram 240 mL PO Q10M Tobacco use date assessed: 08/18/23 HPI HPI Comments History of Present Illness Details 53-year-old female presents for an extended physical exam She has history of DJD of left shoulder, anxiety, depression, sleep disturbance, and vasomotor symptoms d/t menopause Recent lab results are unrevealing She notes she was recently seen by pit furnace melter and was started on wound replacement therapy for vasomotor symptoms. She notes that her hot flashes are gone. She is sleeping better, has less brain fog, and less anxious and irritable She offers no complaints and denies acute symptoms at this time She has never had a colonoscopy. She notes she will call [facility] gastroenterology to schedule a colonoscopy Last mammogram was on 10/2022: Benign Last pap smear was on 08/2022: normal She notes she has never had the shingrix vaccines She notes she had the flu vaccine in June 2023 [facility] Medical History No pertinent past medical history Surgical History History of appendectomy History of tubal ligation Family History Father No problems noted. 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 1. Little interest or pleasure in doing things: not at all 2. Feeling down, depressed, or hopeless: not at all 3. Trouble falling or staying asleep, or sleeping too much: several days 4. Feeling tired or having little energy: several days 5. Poor appetite or overeating: not at all 6. Feeling bad about yourself - or that you are a failure or have let yourself or your family down: not at all 7. Trouble concentrating on things, such as reading the newspaper or watching television: not at all 8. Moving or speaking so slowly that other people could have noticed. Or the opposite - being so fidgety or restless that you have been moving around a lot more than usual: not at all 9. Thoughts that you would be better off or of hurting yourself in some way: not at all Total score: 2 Depression Screening Interpretation: Negative Depression Screening Done: Yes 00322 - PHQ-9 Billing: Yes Source: Developed by Drs. Cuba Valdez, Sade Molina, Tony Berrios and colleagues, with an educational rodrick from [employer]. Thrive Questionnaire Date Thrive assessed: 08/18/23 I am a: Patient What is your living situation today?: I have a steady place to live Within the past 12 months, did the food you bought not last and you didn't have the money to get more?: Never true Within the past 12 months, did you worry whether your food would run out before you got money to buy more?: Never true Do you have trouble paying for medicines?: No Do you have trouble getting transportation to medical appointments?: No Do you have trouble paying your heating and electricity bill?: No Do you have trouble taking care of your child, family member or friend?: No Do you have trouble with day-to-day activities such as bathing, preparing meals, shopping, managing finances, etc.?: No Are you currently unemployed and looking for a job?: No Are you interested in more education?: No Please select the resources that you would like help with: None Currently or been in a relationship where the following occur: no concerns reported AUDIT C Alcohol Use Questionnaire (AUDIT-C) 1. How often do you have a drink containing alcohol?: Never 3. How often do you have six or more drinks on one occasion?: Never Total Score: 0 SANDIE-7 AMB Questionnaire SANDIE-7 Date SANDIE - 7 assessed: 10/08/23 Feeling nervous, anxious, or on edge: 1 = Several days Not being able to stop or control worryin = Several days Worrying too much about different things: 1 = Several days Trouble relaxin = Several days Being so restless that it is hard to sit still: 0 = Not at all Becoming easily annoyed or irritable: 0 = Not at all Feeling afraid as if something awful might happen: 0 = Not at all Total SANDIE-7 score (0-4 normal; 5-9 mild; 10-14 moderate; 15-21 severe): 4 Source: Developed by Drs. Cuba Valdez, Sade Molina, Tony Berrios and colleagues, with an educational rodrick from [employer]. SANDIE-7 Assessment Billing SANDIE-7 Assessment Tool: SANDIE-7 Assessment 03097 Review of Systems Const Details: Denies chills, Denies fatigue, Denies fever(s), Denies headache(s) and Denies weakness HEENT Denies change in vision, Denies dizziness, Denies headache(s), Denies hearing loss, Denies nasal congestion, Denies sinus pain, Denies sinus pressure and Denies sore throat Card Denies chest pain, Denies lightheadedness, Denies dyspnea and Denies other (palpitations) Resp Denies cough, Denies dyspnea and Denies wheezing GI Denies abdominal pain, Denies melena, Denies hematochezia, Denies change in bowel habits, Denies dyspepsia and Denies nausea Denies hematuria and Denies dysuria Musc Denies abnormal gait, Denies myalgias, Denies arthralgias, Denies numbness and Denies tingling Skin/Breast Denies rash, Denies unusual bruising and Denies wounds Neuro Denies abnormal gait, Denies dizziness, Denies headache(s), Denies memory loss, Denies numbness, Denies Sensory deficit (Neuro), Denies tingling and Denies weakness Psych Denies anxiety, Denies depression and Denies memory loss Endo Denies cold intolerance, Denies fatigue, Denies heat intolerance, Denies polydipsia and Denies polyuria Ed/Lymph Denies easy bleeding and Denies easy bruising Aller/Immun Denies wheezing Physical exam (Primary Care) Vital Signs: Last Vital Signs Pulse 66 10/08/23 08:24 BP 102/56 L 10/08/23 08:24 Pulse Ox 99 10/08/23 08:24 Oxygen Delivery Method Room Air 10/08/23 08:24 BMI result Body Mass Index 24.3 Tobacco/Smoking Status: Tobacco use Status Tobacco use date assessed 08/18/23 10/08/23 08:19 Patient Tobacco Use Status Former Tobacco user 10/08/23 08:32 e-Cigarette/Vaping Use Never Used 10/08/23 08:32 PHQ-9: PHQ-9 Score PHQ-9: Total score 2 10/08/23 08:35 Depression Screening Interpretation: Negative Thrive Assessment: Date of Thrive Assessment Date Thrive assessed 08/18/23 10/08/23 08:19 Currently or been in a relationship where the following occur: no concerns reported Const Other: General: no acute distress, well developed, alert and awake Nutritional Appearance: well nourished Orientation/consciousness: patient oriented x3 HENMT Head: Yes normocephalic and Yes atraumatic Ears: hearing grossly normal bilaterally and TM's normal bilaterally General nose exam: Normal external nose present and Normal nares present Mouth: Normal oral and palatal mucosa present and moist mucous membranes Teeth and gingiva: dentition normal Throat: Yes oropharynx normal Eyes Pupils: Equal, round and reactive pupils present and Pupil accommodation reflex normal EOM: EOMs intact bilaterally Neck Neck: Yes normal visual inspection, Yes no lymphadenopathy and Yes trachea midline Thyroid: Thyroid normal Carotids: no bruits Lymphatic: no lymphadenopathy noted Chest Chest palpation & inspection: normal inspection of the chest Resp Effort & Inspection: normal respiratory effort Auscultation: clear to auscultation bilaterally Cardio Rate: regular rate Rhythm: regular rhythm Heart sounds: S1 normal heart sound present, S2 normal heart sound present, no gallops, no murmurs and no rubs Bruits: no abdominal aortic bruits and no carotid bruits GI Palpation (GI): No Abdominal aortic bruit present, Soft to palpation, nontender, No hepatosplenomegaly present and No Rebound tenderness present Auscultation: normal bowel sounds General: Yes no CVA tenderness Back/Spine/Pelvis Back: no CVA tenderness Cervical Spine: cervical ROM normal and No Cervical spine tenderness Thoracic/Lumbar Spine: thoraco-lumbar ROM normal, No pain with thoraco-lumbar ROM, No thoracic spinal tenderness and No lumbar spinal tenderness Skin General: warm and dry. Normal skin color. Normal skin turgor Lesions: no lesions Rashes: no rashes Trauma: no lacerations or abrasions Wounds: no wounds Nails: normal Neuro General: patient oriented x3, gait normal and CN's II-XI intact bilaterally Cranial nerves: Yes Equal, round and reactive pupils present Cognition (Neuro): normal cognition Gait exam (Neuro): Normal gait present Motor exam (neuro): 5/5 motor strength present throughout Sensory Exam: No Sensory deficit (Neuro) Deep tendon reflexes (DTR's): Right patellar reflex intensity grade: 2+ and Left patellar reflex intensity grade: 2+ Extrem General: Yes normal to inspection, No edema and No calf tenderness Psych Appearance: grossly normal Affect: normal affect Attitude: cooperative Thought process: Normal thought process present Assessment and Plan Assessment & Plan (1) Normal physical examination, routine: Code(s): Z00.00 - Encounter for general adult medical examination without abnormal findings Plan: No significant physical restrictions or limitations noted Continue current treatment regimen Follow-up in 3 months for anxiety and depression or return sooner with symptoms or concerns Verbalized understanding and agreed with treatment plan (2) Anxiety and depression: Code(s): F41.9 - Anxiety disorder, unspecified; F32.A - Depression, unspecified Plan: Reports symptoms significant improvement of anxiety and depression symptoms PHQ-9 and SANDIE-7 scores are normal Take hydroxyzine as prescribed Routine exercise encouraged Follow-up in 3 months or return sooner with worsening or new symptoms Verbalized understanding and agreed with treatment plan (3) Vasomotor symptoms due to menopause: Code(s): N95.1 - Menopausal and female climacteric states Plan: Currently on hormone replacement therapy with significant improvement Continue current treatment regimen Continue follow-up with pit furnace melter as planned Follow-up with symptoms or concerns Verbalized understanding and agreed with treatment plan (4) Vaccine counseling: Code(s): Z71.85 - Encounter for immunization safety counseling Plan: She has not been vaccinated for shingles Instructed on importance of vaccination and encouraged to get vaccinated for shingles Verbalized understanding and agreed with the plan Coding Level of Care Code Est Pt Prev Care 40-64y(60081) Diagnoses Normal physical examination, routine Z00.00 Anxiety and depression F41.9; F32.A Vasomotor symptoms due to menopause N95.1 Vaccine counseling Z71.85 Additional Codes SANDIE-7 Assessment Billing - SANDIE-7 Assessment Tool: SANDIE-7 Assessment 52745 ([id number])
[2023-10-08 08:24] VITALS: BP 102/56; PULSE 66; RESP 18; O2SAT 99; BMI 24.3
== END 2023-10-08 09:00 | disposition home or self-care (01) ==
PROVIDERS: PCP Nurse Practitioner Family; Visit Provider Nurse Practitioner Family
DX: Z00.00 Encounter for general adult medical examination without abnormal findings (principal); F41.9 Anxiety disorder, unspecified; F32.A Depression, unspecified; N95.1 Menopausal and female climacteric states; Z71.85 Encounter for immunization safety counseling
CPT/HCPCS: 99396

== ENCOUNTER 2023-11-14 07:43 | Outpatient (REF) | payer OTHER, SELFPAY | END 2023-11-14 07:44 | disposition home or self-care (01) | LOC: HO.MAMMO 07:43 | PROVIDERS: PCP Nurse Practitioner Family; Visit Provider Nurse Practitioner Family | DX: Z12.31 Encounter for screening mammogram for malignant neoplasm of breast (principal) | CPT/HCPCS: 77063; 77067 ==

== ENCOUNTER → 2023-11-14 07:45 | Outpatient (BNV) | payer OTHER, SELFPAY | PROVIDERS: PCP Nurse Practitioner Family; Visit Provider Radiology Diagnostic Radiology | DX: Z12.31 Encounter for screening mammogram for malignant neoplasm of breast (principal) | CPT/HCPCS: 77063; 77067 ==

== ENCOUNTER 2024-01-08 07:57 | Outpatient (AMB) | payer OTHER, SELFPAY ==
[2024-01-08 08:02] VITALS: BP 108/68; PULSE 81; RESP 13; TEMP 36.6; O2SAT 98; BMI 23.8
--- NOTE | 2024-01-08 08:02 | A.OFFPC_ITS ---
Vital Signs 01/08/24 08:02 Height 5 ft 2 in Weight 130 lb 6 oz BMI 23.8 BP 108/68 Blood Pressure Location Rt brachial Position Sitting Respiration 13 Pulse 81 Pulse Source Pulse Oximeter Temp 97.8 F Temp Source Temporal Artery Scan Pulse Oximetry (%) 98 Oxygen Delivery Method Room Air Intake Visit Reasons: 3 mos anxiety, depression Intake Note: Patient would like refill on cyclobenzaprine. 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 Accompanied by: Self / Same As Patient Allergies oxycodone Allergy (Severe, Verified 01/08/24 08:09) Vomiting prochlorperazine [From Compazine] Allergy (Mild, Verified 01/08/24 08:09) could not move her eyes Medication List - Last Reconciled 01/08/24 by Jaylan Fofana CNP cyclobenzaprine 10 mg PO TID PRN fluticasone propionate 50 mcg/actuation (Flonase Allergy Relief) 1 spray intranasal DAILY hydroxyzine HCl 25 mg PO TID PRN 30 days peg 3350-electrolytes 236-22.74-6.74 -5.86 gram 240 mL PO Q10M Tobacco use date assessed: 01/08/24 Dental Screening Dental Screen Date: 01/08/24 Did you have a dental visit in the last 12 months?: Yes Did you have a dental problem in the last 6 months where you did not have access to dental care?: No Was dental information given to patient?: Patient has dentist HPI HPI Comments History of Present Illness Details 53-year-old female presents for anxiety and depression follow-up She admits to taking hydroxyzine as prescribed without adverse reactions She notes that her anxiety and depression symptoms are well controlled since she started HRT about 5 months ago; she is followed by [facility]. She occasionally takes Hydroxyzine; last does was 6 days ago after a month She offers no complaints and denies acute symptoms at this time [facility] Medical History No pertinent past medical history Surgical History History of appendectomy History of tubal ligation Family History Father No problems noted. 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 1. Little interest or pleasure in doing things: not at all 2. Feeling down, depressed, or hopeless: not at all 3. Trouble falling or staying asleep, or sleeping too much: several days 4. Feeling tired or having little energy: several days 5. Poor appetite or overeating: not at all 6. Feeling bad about yourself - or that you are a failure or have let yourself or your family down: not at all 7. Trouble concentrating on things, such as reading the newspaper or watching television: not at all 8. Moving or speaking so slowly that other people could have noticed. Or the opposite - being so fidgety or restless that you have been moving around a lot more than usual: not at all 9. Thoughts that you would be better off or of hurting yourself in some way: not at all Total score: 2 Depression Screening Interpretation: Negative Depression Screening Done: Yes 19972 - PHQ-9 Billing: Yes Source: Developed by Drs. Cuba Valdez, Sade Molina, Tony Berrios and colleagues, with an educational rodrick from [employer] Thrive Questionnaire Date Thrive assessed: 08/18/23 SANDIE-7 AMB Questionnaire SANDIE-7 Date SANDIE - 7 assessed: 01/08/24 Feeling nervous, anxious, or on edge: 1 = Several days Not being able to stop or control worryin = Several days Worrying too much about different things: 1 = Several days Trouble relaxin = Several days Being so restless that it is hard to sit still: 0 = Not at all Becoming easily annoyed or irritable: 1 = Several days Feeling afraid as if something awful might happen: 0 = Not at all Total SANDIE-7 score (0-4 normal; 5-9 mild; 10-14 moderate; 15-21 severe): 5 Source: Developed by Drs. Cuba Valdez, Sade Molina, Tony Berrios and colleagues, with an educational rodrick from [employer] SANDIE-7 Assessment Billing SANDIE-7 Assessment Tool: SANDIE-7 Assessment 59808 Review of Systems Const Details: Const Denies chills, Denies fatigue, Denies fever(s), Denies headache(s) and Denies weakness ENT Denies dizziness and Denies headache(s) Card Denies chest pain, Denies lightheadedness, Denies dyspnea and Denies other (Palpitations) Resp Denies cough, Denies dyspnea, Denies wheezing and Denies other ( shortness of breath) GI Denies abdominal pain, Denies melena, Denies hematochezia, Denies change in bowel habits, Denies dyspepsia and Denies nausea Denies hematuria and Denies dysuria Musc Denies abnormal gait, Denies myalgias, Denies arthralgias, Denies numbness and Denies tingling Skin/Breast Denies rash, Denies unusual bruising and Denies wounds Neuro Denies abnormal gait, Denies dizziness, Denies headache(s), Denies memory loss, Denies numbness, Denies Sensory deficit (Neuro), Denies tingling and Denies weakness Psych Denies anxiety, Denies depression, Denies memory loss Endo Denies cold intolerance, Denies fatigue, Denies heat intolerance, Denies polydipsia and Denies polyuria Aller/Immun Denies wheezing Physical exam (Primary Care) Vital Signs: Last Vital Signs Temp 97.8 F 01/08/24 08:02 Pulse 81 01/08/24 08:02 Resp 13 01/08/24 08:02 BP 108/68 01/08/24 08:02 Pulse Ox 98 01/08/24 08:02 Oxygen Delivery Method Room Air 01/08/24 08:02 BMI result Body Mass Index 23.8 Tobacco/Smoking Status: Tobacco use Status Tobacco use date assessed 01/08/24 01/08/24 08:11 Patient Tobacco Use Status Never used Tobacco 04/05/24 08:11 e-Cigarette/Vaping Use Never Used 01/08/24 08:11 PHQ-9: PHQ-9 Score PHQ-9: Total score 2 01/08/24 17:13 Depression Screening Interpretation: Negative Thrive Assessment: Date of Thrive Assessment Date Thrive assessed 08/18/23 01/08/24 08:11 Const Other: General: no acute distress and well developed Nutritional Appearance: well nourished Orientation/consciousness: patient oriented x3 HENMT Head: Yes normocephalic and Yes atraumatic Eyes General: appearance normal, both eyes and all related structures Pupils: Equal, round and reactive pupils present EOM: EOMs intact bilaterally Resp Effort & Inspection: normal respiratory effort Auscultation: clear to auscultation bilaterally Cardio Rate: regular rate Rhythm: regular rhythm Heart sounds: S1 normal heart sound present, S2 normal heart sound present, no gallops, no murmurs and no rubs GI Palpation (GI): No Abdominal aortic bruit present, Soft to palpation, nontender, No hepatosplenomegaly present and No Rebound tenderness present Auscultation: normal bowel sounds General: Yes no CVA tenderness Back/Spine/Pelvis Back: no CVA tenderness Cervical Spine: cervical ROM normal and No Cervical spine tenderness Thoracic/Lumbar Spine: thoraco-lumbar ROM normal, No pain with thoraco-lumbar ROM, No thoracic spinal tenderness and No lumbar spinal tenderness Extrem General: Yes normal to inspection, No edema and No calf tenderness Skin General: warm and dry. Normal skin color. Normal skin turgor Neuro General: patient oriented x3, gait normal and no focal neuro deficit Cranial nerves: Yes Equal, round and reactive pupils present Cognition (Neuro): normal cognition Gait exam (Neuro): Normal gait present Sensory Exam: No Sensory deficit (Neuro) Psych Appearance: grossly normal Affect: normal affect Attitude: cooperative Thought process: Normal thought process present Assessment and Plan Assessment & Plan (1) Anxiety and depression: Code(s): F41.9 - Anxiety disorder, unspecified; F32.A - Depression, unspecified Plan: PHQ-9 score is normal. 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 10 mg PO TID PRN 90 tabs 1RF muscle spasm M19.012 - Primary osteoarthritis, left shoulder Coding Level of Care Code Est Pt Level 3 (13053) Diagnoses Anxiety and depression F41.9; F32.A Additional Codes SANDIE-7 Assessment Billing - SANDIE-7 Assessment Tool: SANDIE-7 Assessment 66650 ([id number])
== END 2024-01-08 08:20 | disposition home or self-care (01) ==
PROVIDERS: PCP Nurse Practitioner Family; Visit Provider Nurse Practitioner Family
DX: F41.9 Anxiety disorder, unspecified (principal); F32.A Depression, unspecified
CPT/HCPCS: 99213

== ENCOUNTER 2024-05-16 07:49 | Outpatient (AMB) | payer BC, SELFPAY ==
--- NOTE | 2024-05-16 08:00 | MHC.PC.OV ---
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 Is last menstrual period known: Yes Last menstrual period: 12/16/23 Post menopausal: Yes Patient : No Allergies oxycodone Allergy (Severe, Verified 05/16/24 08:15) Vomiting prochlorperazine [From Compazine] Allergy (Mild, Verified 05/16/24 08:15) could not move her eyes Medication List - Last Reconciled 05/16/24 by Jaylan Fofana CNP cyclobenzaprine 10 mg PO TID PRN fluticasone propionate 50 mcg/actuation (Flonase Allergy Relief) 1 spray intranasal DAILY hydroxyzine HCl 25 mg PO TID PRN 30 days norethindrone ac-eth estradiol 1-5 mg-mcg (Fyavolv) 1 tab PO DAILY peg 3350-electrolytes 236-22.74-6.74 -5.86 gram 240 mL PO Q10M Tobacco use date assessed: 05/16/24 Dental Screening Dental Screen Date: 05/16/24 Did you have a dental visit in the last 12 months?: Yes Did you have a dental problem in the last 6 months where you did not have access to dental care?: No Was dental information given to patient?: Patient has dentist HPI HPI Comments History of Present Illness Details 53-year-old female presents for anxiety and depression follow-up She admits to taking hydroxyzine as prescribed without adverse reactions She reports controlled anxiety and depressive symptoms. She notes that she generally eats and sleeps wells. She has been exercising routinely. 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 She is a bit anxious to resume work next Thursday She offers no complaints and denies acute symptoms at this time [facility] Medical History No pertinent past medical history Surgical History History of appendectomy History of tubal ligation Family History Father No problems noted. 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 1. Little interest or pleasure in doing things: not at all 2. Feeling down, depressed, or hopeless: not at all 3. Trouble falling or staying asleep, or sleeping too much: several days 4. Feeling tired or having little energy: several days 5. Poor appetite or overeating: not at all 6. Feeling bad about yourself - or that you are a failure or have let yourself or your family down: several days 7. Trouble concentrating on things, such as reading the newspaper or watching television: not at all 8. Moving or speaking so slowly that other people could have noticed. Or the opposite - being so fidgety or restless that you have been moving around a lot more than usual: not at all 9. Thoughts that you would be better off or of hurting yourself in some way: not at all Total score: 3 Depression Screening Interpretation: Negative Depression Screening Done: Yes 61699 - PHQ-9 Billing: Yes Source: Developed by Drs. Cuba Valdez, Sade Molina, Tony Berrios and colleagues, with an educational rodrick from [email or web address] Thrive Questionnaire Date Thrive assessed: 08/18/23 AUDIT C Alcohol Use Questionnaire (AUDIT-C) 1. How often do you have a drink containing alcohol?: 2-4 times a month 2. How many drinks containing alcohol do you have on a typical day when you are drinking?: 1 or 2 3. How often do you have six or more drinks on one occasion?: Never Total Score: 2 SANDIE-7 AMB Questionnaire SANDIE-7 Date SANDIE - 7 assessed: 05/16/24 Feeling nervous, anxious, or on edge: 1 = Several days Not being able to stop or control worryin = Several days Worrying too much about different things: 1 = Several days Trouble relaxin = Several days Being so restless that it is hard to sit still: 0 = Not at all Becoming easily annoyed or irritable: 1 = Several days Feeling afraid as if something awful might happen: 0 = Not at all Total SANDIE-7 score (0-4 normal; 5-9 mild; 10-14 moderate; 15-21 severe): 5 Source: Developed by Drs. Cuba Valdez, Sade Molina, Tony Berrios and colleagues, with an educational rodrick from [email or web address]. SANDIE-7 Assessment Billing SANDIE-7 Assessment Tool: SANDIE-7 Assessment 74269 Review of Systems Const Details: Const Denies chills, Denies fatigue, Denies fever(s), Denies headache(s) and Denies weakness ENT Denies dizziness and Denies headache(s) Card Denies chest pain, Denies lightheadedness, Denies dyspnea and Denies other (Palpitations) Resp Denies cough, Denies dyspnea, Denies wheezing and Denies other ( shortness of breath) GI Denies abdominal pain, Denies melena, Denies hematochezia, Denies change in bowel habits, Denies dyspepsia and Denies nausea Denies hematuria and Denies dysuria Musc Denies abnormal gait, Denies myalgias, Denies arthralgias, Denies numbness and Denies tingling Skin/Breast Denies rash, Denies unusual bruising and Denies wounds Neuro Denies abnormal gait, Denies dizziness, Denies headache(s), Denies memory loss, Denies numbness, Denies Sensory deficit (Neuro), Denies tingling and Denies weakness Psych Denies anxiety, Denies depression, Denies memory loss Endo Denies cold intolerance, Denies fatigue, Denies heat intolerance, Denies polydipsia and Denies polyuria Aller/Immun Denies wheezing Physical exam (Primary Care) Vital Signs: Last Vital Signs Temp 98.7 F 05/16/24 08:11 Pulse 58 05/16/24 08:11 Resp 16 05/16/24 08:11 BP 102/74 05/16/24 08:11 Pulse Ox 99 05/16/24 08:11 Oxygen Delivery Method Room Air 05/16/24 08:11 BMI result Body Mass Index 24.9 Tobacco/Smoking Status: Tobacco use Status Tobacco use date assessed 05/16/24 05/16/24 08:11 Patient Tobacco Use Status Never used Tobacco 05/16/24 08:02 e-Cigarette/Vaping Use Never Used 05/16/24 08:02 PHQ-9: PHQ-9 Score PHQ-9: Total score 3 05/16/24 08:12 Depression Screening Interpretation: Negative Thrive Assessment: Date of Thrive Assessment Date Thrive assessed 08/18/23 05/16/24 08:02 Const Other: General: no acute distress and well developed Nutritional Appearance: well nourished Orientation/consciousness: patient oriented x3 HENMT Head: Yes normocephalic and Yes atraumatic Eyes General: appearance normal, both eyes and all related structures Pupils: Equal, round and reactive pupils present EOM: EOMs intact bilaterally Resp Effort & Inspection: normal respiratory effort Auscultation: clear to auscultation bilaterally Cardio Rate: regular rate Rhythm: regular rhythm Heart sounds: S1 normal heart sound present, S2 normal heart sound present, no gallops, no murmurs and no rubs GI Palpation (GI): No Abdominal aortic bruit present, Soft to palpation, nontender, No hepatosplenomegaly present and No Rebound tenderness present Auscultation: normal bowel sounds General: Yes no CVA tenderness Back/Spine/Pelvis Back: no CVA tenderness Cervical Spine: cervical ROM normal and No Cervical spine tenderness Thoracic/Lumbar Spine: thoraco-lumbar ROM normal, No pain with thoraco-lumbar ROM, No thoracic spinal tenderness and No lumbar spinal tenderness Extrem General: Yes normal to inspection, No edema and No calf tenderness Skin General: warm and dry. Normal skin color. Normal skin turgor Neuro General: patient oriented x3, gait normal and no focal neuro deficit Cranial nerves: Yes Equal, round and reactive pupils present Cognition (Neuro): normal cognition Gait exam (Neuro): Normal gait present Sensory Exam: No Sensory deficit (Neuro) Psych Appearance: grossly normal Affect: normal affect Attitude: cooperative Thought process: Normal thought process present Assessment and Plan Assessment & Plan (1) Anxiety and depression: Code(s): F41.9 - Anxiety disorder, unspecified; F32.A - Depression, unspecified Plan: Controlled anxiety and depressive symptoms SANDIE-7 score revealed mild anxiety. PHQ-9 score is normal Continue to take hydroxyzine as prescribed Routine exercise encouraged Follow-up in 4 months or sooner with symptoms or concerns Verbalized understanding and agreed with the treatment plan Coding Level of Care Code Est Pt Level 4 (32792) Diagnoses Anxiety and depression F41.9; F32.A Additional Codes SANDIE-7 Assessment Billing - SANDIE-7 Assessment Tool: SANDIE-7 Assessment 42730 ([id number])
[2024-05-16 08:11] VITALS: BP 102/74; PULSE 58; RESP 16; TEMP 37.1; O2SAT 99; BMI 24.9
== END 2024-05-16 08:25 | disposition home or self-care (01) ==
PROVIDERS: PCP Nurse Practitioner Family; Visit Provider Nurse Practitioner Family
DX: F41.9 Anxiety disorder, unspecified (principal); F32.A Depression, unspecified
CPT/HCPCS: 96127; 99214

== ENCOUNTER 2024-06-16 07:07 | Day surgery (SDC) | payer BC, SELFPAY ==
[2024-06-14 14:07] VITALS: BMI 24.9
--- NOTE | 2024-06-15 08:53 | HO.ANESPROP2 ---
Documented by User: Ligia Cortez NP 06/15/24 08:53 HPI - Anesthesia Eval Consult details Narrative: 53yo F for Colonoscopy PMFSH Active Problems Active Problems: All Active Problems Vaccine counseling (Acute) Normal physical examination, routine (Acute) Vasomotor symptoms due to menopause (Acute) Viral upper respiratory illness (Acute) Anxiety and depression (Acute) Laboratory tests ordered as part of a complete physical exam (CPE) (Acute) DJD of left shoulder (Acute) Screen for colon cancer (Acute) Screening for breast cancer (Acute) Abnormal laboratory test (Acute) Normal physical exam (Acute) Elevated vitamin B12 level (Acute) Seasonal allergies (Acute) Annual physical exam (Acute) Stress due to illness of family member (Acute) Sleep disturbance (Acute) Past Medical History Medical History (Updated 06/14/24 @ 13:58 by Katarina Amado RN) DJD of left shoulder Anxiety and depression Family History Family History Father No problems noted. Mother Cervical disc disease Back pain Brother Down syndrome Hypertension Osteoarthritis Surgical History Surgical History History of appendectomy History of tubal ligation Social History Social History Household Members: Significant Other Household Members Other:: Dog Housing: House Are you a primary manager intensive care to a significant other at home: No Do you presently have visiting nurse or other home services: No Alcohol intake: current Alcohol intake frequency: holidays/special occasions only Patient Tobacco Use Status: Never used Tobacco e-Cigarette/Vaping Use: Never Used Have you been hit, kicked, punched, or otherwise hurt by someone within the past year? 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 Current occupational exposures/hazards: No Sexual orientation: Unable to collect Gender identity: Unable to collect Cognitive needs: No Hearing needs: Yes Vision needs: No Meds Allergies Allergy/AdvReac Type Severity Reaction Status Date / Time oxycodone Allergy Severe Vomiting Verified 06/16/24 08:14 prochlorperazine Allergy Mild could not Verified 06/16/24 08:14 [From Compazine] move her eyes Home Medications ?Medication ?Instructions ?Recorded ?Confirmed ?Last Taken ?Type fluticasone propionate 50 1 spray intranasal DAILY 08/08/20 06/14/24 Unknown History mcg/actuation nasal spray,suspension (Flonase Allergy Relief) norethindrone acetate 1 mg-ethinyl 1 tab PO DAILY 01/12/24 06/14/24 Unknown History estradiol 5 mcg tablet (Fyavolv) Exam Height,Weight and Vital Signs: Height 5 ft 2 in Weight 61.689 kg Assessment and Plan Assessment Anesthesia Assessment: Chart Reviewed Documented by User: Thien Huerta MD 06/16/24 08:20 COUNTS INCLUDE 234 BEDS AT THE [facility] Past Medical History Medical History (Updated 06/14/24 @ 13:58 by Katarina Amado RN) DJD of left shoulder Anxiety and depression Family History Family History Father No problems noted. Mother Cervical disc disease Back pain Brother Down syndrome Hypertension Osteoarthritis Family history of problems with anesthesia: No Surgical History Surgical History History of appendectomy History of tubal ligation History of Problems with Anesthesia: No Social History Social History Household Members: Significant Other Household Members Other:: Dog Housing: House Are you a primary manager intensive care to a significant other at home: No Do you presently have visiting nurse or other home services: No Alcohol intake: current Alcohol intake frequency: holidays/special occasions only Patient Tobacco Use Status: Never used Tobacco e-Cigarette/Vaping Use: Never Used Have you been hit, kicked, punched, or otherwise hurt by someone within the past year? 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 Current occupational exposures/hazards: No Sexual orientation: Unable to collect Gender identity: Unable to collect Cognitive needs: No Hearing needs: Yes Vision needs: No Meds Allergies Allergy/AdvReac Type Severity Reaction Status Date / Time oxycodone Allergy Severe Vomiting Verified 06/16/24 08:14 prochlorperazine Allergy Mild could not Verified 06/16/24 08:14 [From Compazine] move her eyes Home Medications ?Medication ?Instructions ?Recorded ?Confirmed ?Last Taken ?Type fluticasone propionate 50 1 spray intranasal DAILY 08/08/20 06/14/24 Unknown History mcg/actuation nasal spray,suspension (Flonase Allergy Relief) norethindrone acetate 1 mg-ethinyl 1 tab PO DAILY 01/12/24 06/14/24 Unknown History estradiol 5 mcg tablet (Fyavolv) Exam Airway Mallampati Class: I TM Dist: >3cm Neck ROM: Full Loose/Missing/Broken Teeth: No Heart: ok Lungs: ok Assessment and Plan Assessment Anesthesia Assessment: Anesthesia Plan Discussed Final Anesthetic Review Family History of Problems with Anesthesia: No History of Problems with Anesthesia: No NPO: Yes ASA Class: I Final Preanesthetic Review: No Changes in Pt Med Stat, Meds/Allgs Chart Reviewed, Consent Obtained/Reviewed and Anes Risks/Benef Reviewed Patient Risk: Low Procedure Risk: Low Anesthetic Plan Anesthetic Plan: MAC: and Agree w/ Assess. and Plan Disposition: Standard PACU
[2024-06-16 07:14] VITALS: BMI 24.6
[2024-06-16] MEDS: Lactated Ringers 1,000 ML 100 ML IVCONT (07:21)
[2024-06-16 07:28] VITALS: BP 113/73; PULSE 73; RESP 18; TEMP 36.7; O2SAT 100
--- NOTE | 2024-06-16 08:01 | P.HPSUR_ITS ---
Pre-Procedural Eval Section A - 24 Hr Update-Section A only Date of Service: 06/16/24 Section B - Complete if H&P > 30 days Chief Complaint: Encounter for screening for malignant neoplasm of Relevant Family History (Specify if Yes): No Relevant Social History: None Present Medications: see Short Stay Collaborative assessment Medical History: Significant History (DJD of left shoulder Anxiety and depress ion) History of Previous Operations: Relevant previous surgery/procedure and date(s) ( History of appendectomy History of tubal ligation) Allergies: Allergies Allergy/AdvReac Type Severity Reaction Status Date / Time oxycodone Allergy Severe Vomiting Verified 05/16/24 08:15 prochlorperazine Allergy Mild could not Verified 05/16/24 08:15 [From Compazine] move her eyes Review of Systems Sugical H&P ROS: Negative: Constitution, Cardiovascular, Respiratory, Neurological, Psychiatric, Hem-Onc, Allergic/Immunologic, Gastrointestinal, Genitourinary, Musculoskeletal, Integumentary, Endocrine and Eyes/Ears/Nose/Throat Exam Surgical H&P Exam: Normal: HEENT, Normal: Heart, Normal: Lungs, Normal: Extremities, Normal: Abdomen, Normal: Skin and Normal: Neurological Plan Diagnosis/Plan: Unchanged I have reviewed the history and physical and performed a pertinent physical examination on my patient. No changes have occurred unless specified. Time Spent With Patient Time: Total time managing care of this patient today ____ minutes.
--- NOTE | 2024-06-16 08:09 | P.OPN-COLO_ITS ---
Colonoscopy Operative Note Operative Note Date of Service: 06/16/24 Narrative: Operative Information Procedure Description: Colonoscopy Indication: screening Anesthesia: MAC COLONOSCOPY Instrument: Olympus variable stiffness pediatric scope 190L Colonoscopy Monitoring: Vital signs and clinical assessment, continuous EKG monitoring, Pulse oximetry, Carbon Dioxide monitoring and blood pressure monitoring were done throughout the procedure. Colon withdrawal time was 9 minutes. Procedure: The patient was placed in the left lateral decubitis position and pre-procedure medications were administered. After a digital rectal examination of the ano-rectum, the video colonoscope was inserted into the rectum and advanced through the colon to the cecum/TI. The colonoscope was slowly withdrawn in a retrograde panoramic fashion and the colon mucosa was carefully examined including a retroflexed view of the rectum. Findings and interventions are described below. Procedure Difficulty: easy Findings: Terminal Ileum-normal Cecum:normal right sided retroflexion- 6-8 mm sessile polyp removed with cold snare Ascending Colon: normal Transverse Colon -normal Descending Colon:normal Sigmoid Colon: mild diverticulosis Rectum: Retroflexion with small internal hemorrhoids seen, grade I, 4-5 mm sessile polyp removed with cold forceps Anorectum - normal Intervention: cold snare, cold forceps Colon preparation: [place] Bowel Preparation Scale Right colon; 2 Transverse colon: 2 Left colon; 2 (0 = Unprepared colon segment with mucosa not seen due to solid stool that cannot be cleared. 1 = Portion of mucosa of the colon segment seen, but other areas of the colon segment not well seen due to staining, residual stool and/or opaque liquid. 2 = Minor amount of residual staining, small fragments of stool and/or opaque liquid, but mucosa of colon segment seen well. 3 = Entire mucosa of colon segment seen well with no residual staining, small fragments of stool or opaque liquid) Impression and Post Procedure Diagnosis: diverticulosis colon polyps internal hemorrhoids Plan: High fiber diet leaflet Avoid straining at stool, epsom salts and sitz bath, anusol supps or cream Repeat Colonoscopy in 5 years if adenomatous polyps, 10 yrs if hyperplastic or earlier if clinically indicated Above findings were reviewed with the patient and relevant handouts were provided if indicated.
[2024-06-16 08:38] VITALS: BP 97/57; PULSE 68; RESP 18; TEMP 36.2; O2SAT 99
[2024-06-16 08:53] VITALS: BP 113/74; PULSE 69; RESP 16; O2SAT 100
[2024-06-16 09:06] VITALS: BP 110/65; PULSE 82; RESP 16; TEMP 36.3; O2SAT 98
== END 2024-06-16 09:20 | disposition home or self-care (01) ==
PROVIDERS: PCP Nurse Practitioner Family; Visit Provider Internal Medicine Gastroenterology
PROC: 0DJD8ZZ Inspection of Lower Intestinal Tract, Via Natural or Artificial Opening Endoscopic (ICD-10-PCS; CPT 45378; principal; 2024-06-16 08:10)
DX: Z12.11 Encounter for screening for malignant neoplasm of colon (principal); D12.8 Benign neoplasm of rectum; K63.5 Polyp of colon; K57.30 Diverticulosis of large intestine without perforation or abscess without bleeding; K64.0 First degree hemorrhoids; M19.012 Primary osteoarthritis, left shoulder; R74.8 Abnormal levels of other serum enzymes; F41.8 Other specified anxiety disorders; Z79.51 Long term (current) use of inhaled steroids; Z79.899 Other long term (current) drug therapy; Z88.5 Allergy status to narcotic agent; Z88.8 Allergy status to other drugs, medicaments and biological substances; Z98.890 Other specified postprocedural states; Z87.891 Personal history of nicotine dependence
CPT/HCPCS: 45385; 45380; 88305; J2704

== ENCOUNTER → 2024-06-16 07:07 | Outpatient (BNV) | payer BC, SELFPAY | PROVIDERS: PCP Nurse Practitioner Family; Visit Provider Internal Medicine Gastroenterology | DX: Z12.11 Encounter for screening for malignant neoplasm of colon (principal); D12.8 Benign neoplasm of rectum; K57.30 Diverticulosis of large intestine without perforation or abscess without bleeding; K64.0 First degree hemorrhoids; K63.5 Polyp of colon | CPT/HCPCS: 45380; 45385 ==

== ENCOUNTER 2024-11-23 09:26 | Outpatient (AMB) | payer BC, SELFPAY ==
--- NOTE | 2024-11-23 09:28 | MHC.PC.OV ---
Vital Signs 11/23/24 09:35 Height 5 ft 2 in Weight 134 lb 6 oz BMI 24.6 BP 107/52 L Blood Pressure Location Rt brachial Position Sitting Respiration 16 Pulse 67 Pulse Source Pulse Oximeter Temp 98.6 F Temp Source Oral Pulse Oximetry (%) 99 Oxygen Delivery Method Room Air Intake Visit Reasons: 4 mos anxiety, depression Intake Note: patient here for 4 moth follow up on anxiety and depression Ehs Teacher Required: No Is last menstrual period known: Yes (spotted for 3 days) Last menstrual period: 11/09/24 Post menopausal: No Patient : No Allergies oxycodone Allergy (Severe, Verified 11/23/24 09:58) Vomiting prochlorperazine [From Compazine] Allergy (Mild, Verified 11/23/24 09:58) could not move her eyes Medication List - Last Reconciled 11/23/24 by Jaylan Fofana CNP cyclobenzaprine 10 mg PO TID PRN fluticasone propionate 50 mcg/actuation (Flonase Allergy Relief) 1 spray intranasal DAILY hydroxyzine HCl 25 mg PO TID PRN 30 days norethindrone ac-eth estradiol 1-5 mg-mcg (Fyavolv) 1 tab PO DAILY Tobacco use date assessed: 11/23/24 Dental Screening Dental Screen Date: 11/23/24 Did you have a dental visit in the last 12 months?: Yes Did you have a dental problem in the last 6 months where you did not have access to dental care?: No Was dental information given to patient?: Patient has dentist HPI HPI Comments History of Present Illness Details 54-year-old female presents for anxiety and depression follow-up She admits to taking hydroxyzine as prescribed without adverse reactions She reports controlled anxiety and depressive symptoms. She notes that she generally eats and sleeps wells. She has been exercising routinely. To request Dermatology referral for lesion to her right lower abdomen. The lesion has been present for about 15 years and has a gradually increased size. Denies itching, pain, or discomfort. [facility] Medical History (Updated 11/23/24 @ 10:07 by Jaylan Fofana CNP) DJD of left shoulder Anxiety and depression Surgical History History of appendectomy History of tubal ligation Family History Father No problems noted. 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 1. Little interest or pleasure in doing things: not at all 2. Feeling down, depressed, or hopeless: not at all 3. Trouble falling or staying asleep, or sleeping too much: several days 4. Feeling tired or having little energy: several days 5. Poor appetite or overeating: not at all 6. Feeling bad about yourself - or that you are a failure or have let yourself or your family down: not at all 7. Trouble concentrating on things, such as reading the newspaper or watching television: not at all 8. Moving or speaking so slowly that other people could have noticed. Or the opposite - being so fidgety or restless that you have been moving around a lot more than usual: not at all 9. Thoughts that you would be better off or of hurting yourself in some way: not at all Total score: 2 Depression Screening Interpretation: Negative Depression Screening Done: Yes 30269 - PHQ-9 Billing: Yes Source: Developed by Drs. Cuba Valdez, Sade Molina, Tony Berrois and colleagues, with an educational rodrick from [employer]. Thrive Questionnaire Date Thrive assessed: 11/23/24 I am a: Patient What is your living situation today?: I have a steady place to live Within the past 12 months, did the food you bought not last and you didn't have the money to get more?: Never true Within the past 12 months, did you worry whether your food would run out before you got money to buy more?: Never true Do you have trouble paying for medicines?: No Do you have trouble getting transportation to medical appointments?: No Do you have trouble paying your heating and electricity bill?: No Do you have trouble taking care of your child, family member or friend?: No Do you have trouble with day-to-day activities such as bathing, preparing meals, shopping, managing finances, etc.?: No Are you currently unemployed and looking for a job?: No Are you interested in more education?: No Please select the resources that you would like help with: None Currently or been in a relationship where the following occur: No concerns reported THRIVE Score: 0 AUDIT C Alcohol Use Questionnaire (AUDIT-C) 1. How often do you have a drink containing alcohol?: 2-4 times a month 2. How many drinks containing alcohol do you have on a typical day when you are drinking?: 3 or 4 3. How often do you have six or more drinks on one occasion?: Never Total Score: 3 SANDIE-7 AMB Questionnaire SANDIE-7 Date SANDIE - 7 assessed: 11/23/24 Feeling nervous, anxious, or on edge: 1 = Several days Not being able to stop or control worryin = Several days Worrying too much about different things: 1 = Several days Trouble relaxin = Not at all Being so restless that it is hard to sit still: 0 = Not at all Becoming easily annoyed or irritable: 1 = Several days Feeling afraid as if something awful might happen: 0 = Not at all Total SANDIE-7 score (0-4 normal; 5-9 mild; 10-14 moderate; 15-21 severe): 4 Source: Developed by Drs. Cuba Valdez, Sade Molina, Tony Berrios and colleagues, with an educational rodrick from [employer]. SANDIE-7 Assessment Billing SANDIE-7 Assessment Tool: SANDIE-7 Assessment 45002 Review of Systems Const Details: Const Denies chills, Denies fatigue, Denies fever(s), Denies headache(s) and Denies weakness ENT Denies dizziness and Denies headache(s) Card Denies chest pain, Denies lightheadedness, Denies dyspnea and Denies other (Palpitations) Resp Denies cough, Denies dyspnea, Denies wheezing and Denies other ( shortness of breath) GI Denies abdominal pain, Denies melena, Denies hematochezia, Denies change in bowel habits, Denies dyspepsia and Denies nausea Denies hematuria and Denies dysuria Musc Denies abnormal gait, Denies myalgias, Denies arthralgias, Denies numbness and Denies tingling Skin/Breast Reports lesion to right lower abdomen, Denies unusual bruising and Denies wounds Neuro Denies abnormal gait, Denies dizziness, Denies headache(s), Denies memory loss, Denies numbness, Denies Sensory deficit (Neuro), Denies tingling and Denies weakness Psych Denies anxiety, Denies depression, Denies memory loss Endo Denies cold intolerance, Denies fatigue, Denies heat intolerance, Denies polydipsia and Denies polyuria Aller/Immun Denies wheezing Physical exam (Primary Care) Vital Signs: Last Vital Signs Temp 98.6 F 11/23/24 09:35 Pulse 67 11/23/24 09:35 Resp 16 11/23/24 09:35 BP 107/52 L 11/23/24 09:35 Pulse Ox 99 11/23/24 09:35 Oxygen Delivery Method Room Air 11/23/24 09:35 BMI result Body Mass Index 24.6 Tobacco/Smoking Status: Tobacco use Status Tobacco use date assessed 11/23/24 11/23/24 09:38 Patient Tobacco Use Status Never used Tobacco 11/23/24 09:31 e-Cigarette/Vaping Use Never Used 11/23/24 09:31 PHQ-9: PHQ-9 Score PHQ-9: Total score 2 11/23/24 09:31 Depression Screening Interpretation: Negative Thrive Assessment: Date of Thrive Assessment Date Thrive assessed 11/23/24 11/23/24 09:31 Currently or been in a relationship where the following occur: No concerns reported Const Other: General: no acute distress and well developed Nutritional Appearance: well nourished Orientation/consciousness: patient oriented x3 HENMT Head: Yes normocephalic and Yes atraumatic Eyes General: appearance normal, both eyes and all related structures Pupils: Equal, round and reactive pupils present EOM: EOMs intact bilaterally Resp Effort & Inspection: normal respiratory effort Auscultation: clear to auscultation bilaterally Cardio Rate: regular rate Rhythm: regular rhythm Heart sounds: S1 normal heart sound present, S2 normal heart sound present, no gallops, no murmurs and no rubs GI Palpation (GI): No Abdominal aortic bruit present, Soft to palpation, nontender, No hepatosplenomegaly present and No Rebound tenderness present Auscultation: normal bowel sounds General: Yes no CVA tenderness Back/Spine/Pelvis Back: no CVA tenderness Cervical Spine: cervical ROM normal and No Cervical spine tenderness Thoracic/Lumbar Spine: thoraco-lumbar ROM normal, No pain with thoraco-lumbar ROM, No thoracic spinal tenderness and No lumbar spinal tenderness Extrem General: Yes normal to inspection, No edema and No calf tenderness Skin General: warm and dry. Normal skin color. Normal skin turgor Lesions: Dime-size round, slightly raised, brown/dark brown lesion to the right lower abdomen, no overt infection Rashes: no rashes Trauma: no lacerations or abrasions Wounds: no wounds Nails: normal Neuro General: patient oriented x3, gait normal and no focal neuro deficit Cranial nerves: Yes Equal, round and reactive pupils present Cognition (Neuro): normal cognition Gait exam (Neuro): Normal gait present Sensory Exam: No Sensory deficit (Neuro) Psych Appearance: grossly normal Affect: normal affect Attitude: cooperative Thought process: Normal thought process present Coding Level of Care Code Est Pt Level 4 (23311) Diagnoses Anxiety and depression F41.9; F32.A Skin lesion L98.9 Laboratory tests ordered as part of a complete physical exam (CPE) Z00.00 Additional Codes SANDIE-7 Assessment Billing - SANDIE-7 Assessment Tool: SANDIE-7 Assessment 03358 ([id number]) PHQ-9 - 20769 - PHQ-9 Billing: Yes ([id number]) Assessment & Plan Assessment & Plan (1) Anxiety and depression: Code(s): F41.9 - Anxiety disorder, unspecified; F32.A - Depression, unspecified Category: Medical Plan: Controlled anxiety and depressive symptoms. Continue current treatment regimen. Routine exercise encouraged. Advised to get lab work done in follow-up for an extended physical exam and labs review in a month. Return sooner with symptoms or concerns. Verbalized understanding and agreed with treatment plan (2) Skin lesion: Code(s): L98.9 - Disorder of the skin and subcutaneous tissue, unspecified Category: Medical Plan: Painless, non itchy lesion to right lower abdomen x 15 years. Dime-size round, slightly raised, brown/dark brown lesion to the right lower abdomen, no overt infection. Referred to dermatology as requested. (3) Laboratory tests ordered as part of a complete physical exam (CPE): Code(s): Z00.00 - Encounter for general adult medical examination without abnormal findings Category: Medical Plan: Fasting labs ordered as part of a complete physical exam. Advised to fast for at least 10 hours before getting labs drawn. May drink water Verbalized understanding and agreed with treatment plan. Orders: Orders TSH reflex Free T4 Today Z00.00 - Encounter for general adult medical examination without abnormal findings UA CC w/rflx Micro + Cult Today Z00.00 - Encounter for general adult medical examination without abnormal findings Complete Blood Count Auto Diff Today Z00.00 - Encounter for general adult medical examination without abnormal findings Comprehensive Hatch. Panel Fast Today Z00.00 - Encounter for general adult medical examination without abnormal findings Lipid Panel Today Z00.00 - Encounter for general adult medical examination without abnormal findings Microalbumin, Random (w Creat) Today Z00.00 - Encounter for general adult medical examination without abnormal findings Referrals Dermatology Referral L98.9 - Disorder of the skin and subcutaneous tissue, unspecified
[2024-11-23 09:35] VITALS: BP 107/52; PULSE 67; RESP 16; TEMP 37; O2SAT 99; BMI 24.6
== END 2024-11-23 10:04 | disposition home or self-care (01) ==
PROVIDERS: PCP Nurse Practitioner Family; Visit Provider Nurse Practitioner Family
DX: F41.9 Anxiety disorder, unspecified (principal); F32.A Depression, unspecified; L98.9 Disorder of the skin and subcutaneous tissue, unspecified; Z00.00 Encounter for general adult medical examination without abnormal findings

== ENCOUNTER → 2024-11-23 09:26 | Outpatient (BNVA) | payer BC, SELFPAY | PROVIDERS: PCP Nurse Practitioner Family; Visit Provider Nurse Practitioner Family | DX: F41.9 Anxiety disorder, unspecified (principal); F32.A Depression, unspecified; L98.9 Disorder of the skin and subcutaneous tissue, unspecified | CPT/HCPCS: 96127 ==

== ENCOUNTER 2024-12-02 15:45 | Outpatient (REF) | payer BC, SELFPAY | END 2024-12-02 15:46 | disposition home or self-care (01) | LOC: HO.MAMMO 15:45 | PROVIDERS: PCP Nurse Practitioner Family; Visit Provider Nurse Practitioner Family | DX: Z12.31 Encounter for screening mammogram for malignant neoplasm of breast (principal) | CPT/HCPCS: 77063; 77067 ==

== ENCOUNTER → 2024-12-02 16:00 | Outpatient (BNV) | payer BC, SELFPAY | PROVIDERS: PCP Nurse Practitioner Family; Visit Provider Internal Medicine | DX: Z12.31 Encounter for screening mammogram for malignant neoplasm of breast (principal) | CPT/HCPCS: 77063; 77067 ==

== ENCOUNTER 2024-12-21 06:14 | Outpatient (REF) | payer BC, SELFPAY ==
[2024-12-21 06:32] LABS: MANUAL DIFF FLAG NO
[2024-12-21 07:13] LABS: Basophils Absolute Auto 0.1 X10*3/uL (0.0-0.2); Basophils Percent Auto 1.1 % (0-2); Eosinophils Absolute Auto 0.2 X10*3/uL (0.0-0.4); Eosinophils Percent Auto 3.2 % (0-4); Hematocrit 37.2 % (37.0-47.0); Hemoglobin 12.7 g/dl (12.0-16.0); Imm Gran Abs Auto 0.01 X10*3/uL (0.00-0.03); Imm Gran Pct Auto 0.2 % (0.0-0.4); Lymphocytes Absolute Auto 3.6 X10*3/uL (1.2-4.9); Lymphocytes Percent Auto 54.1 % (20-40); Mean Corpuscular HGB Conc 34.1 g/dl (31.0-35.0); Mean Corpuscular Hemoglobin 32.2 pg (27.0-33.0); Mean Corpuscular Volume 94.4 fL (80.0-98.0); Mean Platelet Volume 10.1 fL (9.4-12.3); Monocytes Absolute Auto 0.6 X10*3/uL (0.1-1.2); Monocytes Percent Auto 9.5 % (2-11); Neutrophils Absolute Auto 2.1 x10*3/uL (2.0-8.3); Neutrophils Percent Auto 31.9 % (45-73); Platelet Count 298 X10*3/uL (160-400); Red Blood Count 3.94 X10*6/uL (4.20-5.50); Red Cell Distribution Width 12.6 % (11.0-16.0); White Blood Count 6.6 X10*3/uL (4.8-10.8)
[2024-12-21 07:45] LABS: Creatinine Urine 130.27 mg/dL; Microalbumin Urine < 5.0 mg/L
[2024-12-21 07:50] LABS: Alanine Aminotransferase 16 U/L (0-31); Albumin Level 4.2 g/dL (3.5-5.0); Alkaline Phosphatase 44 U/L (39-117); Anion Gap 11 (12-20); Aspartate Amino Transferase 22 U/L (5-31); Bilirubin Total 0.7 mg/dL (0.0-1.0); Blood Urea Nitrogen 13 mg/dL (9-16); Calcium 8.9 mg/dL (8.4-10.2); Carbon Dioxide 22 mmol/L (22-29); Chloride 110 mmol/L (96-108); Cholesterol 177 mg/dL (<200); Estimated Glomerular Filt Rate 59; Glucose Fasting 92 mg/dL (60-99); HDL Cholesterol 57 mg/dL (>40); LDL Cholesterol Calculated 105 mg/dL (<100); Potassium 4.1 mmol/L (3.3-5.1); Sodium 139 mmol/L (135-145); Total Protein 6.9 g/dL (6.5-8.0); Triglycerides 77 mg/dL (<150)
[2024-12-21 07:53] LABS: Appearance Urine Clear; Color Urine Yellow; Glucose Urine UA Negative (Negative); Leukocyte Esterase Urine Trace (Negative); Nitrite Urine Negative (Negative); PH 6.5 (5.0-9.0); UMIC TRIGGER UACC YES; Urine Blood Negative (Negative); Urine Ketones Negative (Negative); Urine Protein Negative (Neg-Trace)
[2024-12-21 07:58] LABS: Bacteria Urine None Seen (None Seen); Hyaline Casts Urine 0-2 /LPF (0-2); RBC Urine 0-2 /HPF (0-2); WBC Urine 0-5 /HPF (0-5)
[2024-12-21 08:05] LABS: TSH reflex Free T4 2.35 uIU/mL (0.32-4.0)
== END 2024-12-21 06:15 | disposition home or self-care (01) ==
LOC: HO.LAB 06:14
PROVIDERS: PCP Nurse Practitioner Family; Visit Provider Nurse Practitioner Family
DX: Z00.00 Encounter for general adult medical examination without abnormal findings (principal)
CPT/HCPCS: 36415; 80053; 80061; 81001; 82570; 84443; 85025

== ENCOUNTER 2024-12-23 07:46 | Outpatient (AMB) | payer BC, SELFPAY ==
--- NOTE | 2024-12-23 07:56 | A.OFFPC_ITS ---
Vital Signs 12/23/24 08:04 Height 5 ft 2 in Weight 135 lb BMI 24.7 BP 115/59 L Blood Pressure Location Rt brachial Position Sitting Respiration 16 Pulse 77 Pulse Source Pulse Oximeter Temp 97.7 F Temp Source Oral Pulse Oximetry (%) 95 Oxygen Delivery Method Room Air Intake Visit Reasons: 1 mos CPE, labs review Intake Note: patient here for CPE and lab review Automatic Toe Laster Required: No Is last menstrual period known: Yes Last menstrual period: 11/06/24 Post menopausal: No Patient : No Allergies oxycodone Allergy (Severe, Verified 12/23/24 08:18) Vomiting prochlorperazine [From Compazine] Allergy (Mild, Verified 12/23/24 08:18) could not move her eyes Medication List - Last Reconciled 12/23/24 by Jaylan Fofana CNP cyclobenzaprine 10 mg PO TID PRN fluticasone propionate 50 mcg/actuation (Flonase Allergy Relief) 1 spray intranasal DAILY hydroxyzine HCl 25 mg PO TID PRN 30 days norethindrone ac-eth estradiol 1-5 mg-mcg (Fyavolv) 1 tab PO DAILY Tobacco use date assessed: 12/23/24 Dental Screening Dental Screen Date: 12/23/24 Did you have a dental visit in the last 12 months?: Yes Did you have a dental problem in the last 6 months where you did not have access to dental care?: No Was dental information given to patient?: Patient has dentist HPI HPI Comments History of Present Illness Details 54-year-old female presents for an exten ded physical exam. She admits to taking her medications as prescribed without adverse reactions. Acute issue(s) - Painless, non itchy lesion to right lo wer abdomen x 15 years. - Anxiety and depression: She is on hyd roxyzine 25 mg 3 times daily as needed. Reports controlled anxiety and depressive symptoms. - She reports daily fatigue for the past several months. Past Medical History - DJD of left shoulder, anxiety, depres yousif, sleep disturbance, and vasomotor symptoms d/t menopause Social History - Nonsmoker. Does not vape. Drinks 2-3 b eers monthly. Denies recreational drug use - Has been making healthy dietary choice s. Exercises routinely. Generally sleep well Health maintenance - Last eye exam was 2 weeks ago with [facility]. She will obtain her ophthalmology record for her PCP to review - Last dental visit was a in 10/2024 - Last tetanus was in 05/26/2019 - She has never been vaccinated for goodman gles or pneumonia; encouraged to get vaccinated for both. She may get the vaccine from the local pharmacy - She notes that she is up-to-date on flu vaccine - Last pap smear test was in 08/2022: ne gative - Last mammogram was in 12/02/2024: senia l - Last colonoscopy was in 06/16/2024: Be nign polyps [facility] Medical History (Updated 12/23/24 @ 08:25 by Jaylan Fofana CNP) DJD of left shoulder Anxiety and depression Surgical History History of appendectomy History of tubal ligation Family History Father No problems noted. 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 1. Little interest or pleasure in doing things: not at all 2. Feeling down, depressed, or hopeless: not at all 3. Trouble falling or staying asleep, or sleeping too much: several days 4. Feeling tired or having little energy: several days 5. Poor appetite or overeating: not at all 6. Feeling bad about yourself - or that you are a failure or have let yourself or your family down: not at all 7. Trouble concentrating on things, such as reading the newspaper or watching television: not at all 8. Moving or speaking so slowly that other people could have noticed. Or the opposite - being so fidgety or restless that you have been moving around a lot more than usual: not at all 9. Thoughts that you would be better off or of hurting yourself in some way: not at all Total score: 2 Depression Screening Interpretation: Negative Depression Screening Done: Yes 59625 - PHQ-9 Billing: Yes Source: Developed by Drs. Cuba Valdez, Sade Molina, Tony Berrios and colleagues, with an educational rodrick from [employer]. Thrive Questionnaire Date Thrive assessed: 12/23/24 I am a: Patient What is your living situation today?: I have a steady place to live Within the past 12 months, did the food you bought not last and you didn't have the money to get more?: Never true Within the past 12 months, did you worry whether your food would run out before you got money to buy more?: Never true Do you have trouble paying for medicines?: No Do you have trouble getting transportation to medical appointments?: No Do you have trouble paying your heating and electricity bill?: No Do you have trouble taking care of your child, family member or friend?: No Do you have trouble with day-to-day activities such as bathing, preparing meals, shopping, managing finances, etc.?: No Are you currently unemployed and looking for a job?: No Are you interested in more education?: No Please select the resources that you would like help with: None Currently or been in a relationship where the following occur: No concerns reported THRIVE Score: 0 AUDIT C Alcohol Use Questionnaire (AUDIT-C) 1. How often do you have a drink containing alcohol?: 2-4 times a month 2. How many drinks containing alcohol do you have on a typical day when you are drinking?: 3 or 4 3. How often do you have six or more drinks on one occasion?: Never Total Score: 3 Score Reviewed/Action Taken: Yes SANDIE-7 AMB Questionnaire SANDIE-7 Date SANDIE - 7 assessed: 12/23/24 Feeling nervous, anxious, or on edge: 1 = Several days Not being able to stop or control worryin = Not at all Worrying too much about different things: 1 = Several days Trouble relaxin = Several days Being so restless that it is hard to sit still: 0 = Not at all Becoming easily annoyed or irritable: 1 = Several days Feeling afraid as if something awful might happen: 0 = Not at all Total SANDIE-7 score (0-4 normal; 5-9 mild; 10-14 moderate; 15-21 severe): 4 Source: Developed by Drs. Cuba Valdez, Sade Molina, Tony Berrios and colleagues, with an educational rodrick from [employer]. SANDIE-7 Assessment Billing SANDIE-7 Assessment Tool: SANDIE-7 Assessment 53747 Review of Systems Const Details: Denies chills, Reports fatigue, Denies fever(s), Denies headache(s) and Denies weakness HEENT Denies change in vision, Denies dizziness, Denies headache(s), Denies hearing loss, Denies nasal congestion, Denies sinus pain, Denies sinus pressure and Denies sore throat Card Denies chest pain, Denies lightheadedness, Denies dyspnea and Denies other (palpitations) Resp Denies cough, Denies dyspnea and Denies wheezing GI Denies abdominal pain, Denies melena, Denies hematochezia, Denies change in bowel habits, Denies dyspepsia and Denies nausea Denies hematuria and Denies dysuria Musc Denies abnormal gait, Denies myalgias, Denies arthralgias, Denies numbness and Denies tingling Skin/Breast Reports lesion to right lower abdomen, Denies unusual bruising and Denies wounds Neuro Denies abnormal gait, Denies dizziness, Denies headache(s), Denies memory loss, Denies numbness, Denies Sensory deficit (Neuro), Denies tingling and Denies weakness Psych Denies anxiety, Denies depression and Denies memory loss Endo Denies cold intolerance, Reports fatigue, Denies heat intolerance, Denies polydipsia and Denies polyuria Ed/Lymph Denies easy bleeding and Denies easy bruising Aller/Immun Denies wheezing Physical exam (Primary Care) Vital Signs: Last Vital Signs Temp 97.7 F 12/23/24 08:04 Pulse 77 12/23/24 08:04 Resp 16 12/23/24 08:04 BP 115/59 L 12/23/24 08:04 Pulse Ox 95 12/23/24 08:04 Oxygen Delivery Method Room Air 12/23/24 08:04 BMI result Body Mass Index 24.7 Tobacco/Smoking Status: Tobacco use Status Tobacco use date assessed 11/23/24 12/23/24 07:57 Patient Tobacco Use Status Never used Tobacco 12/23/24 07:57 e-Cigarette/Vaping Use Never Used 12/23/24 07:57 Depression Screening Interpretation: Negative Thrive Assessment: Date of Thrive Assessment Date Thrive assessed 11/23/24 12/23/24 07:57 Currently or been in a relationship where the following occur: No concerns reported Const Other: General: no acute distress, well developed, alert and awake Nutritional Appearance: well nourished Orientation/consciousness: patient oriented x3 HENMT Head: Yes normocephalic and Yes atraumatic Ears: hearing grossly normal bilaterally and TM's normal bilaterally General nose exam: Normal external nose present and Normal nares present Mouth: Normal oral and palatal mucosa present and moist mucous membranes Teeth and gingiva: dentition normal Throat: Yes oropharynx normal Eyes Pupils: Equal, round and reactive pupils present and Pupil accommodation reflex normal EOM: EOMs intact bilaterally Neck Neck: Yes normal visual inspection, Yes no lymphadenopathy and Yes trachea midline Thyroid: Thyroid normal Carotids: no bruits Lymphatic: no lymphadenopathy noted Chest Chest palpation & inspection: normal inspection of the chest Resp Effort & Inspection: normal respiratory effort Auscultation: clear to auscultation bilaterally Cardio Rate: regular rate Rhythm: regular rhythm Heart sounds: S1 normal heart sound present, S2 normal heart sound present, no gallops, no murmurs and no rubs Bruits: no abdominal aortic bruits and no carotid bruits GI Palpation (GI): No Abdominal aortic bruit present, Soft to palpation, nontender, No hepatosplenomegaly present and No Rebound tenderness present Auscultation: normal bowel sounds General: Yes no CVA tenderness Back/Spine/Pelvis Back: no CVA tenderness Cervical Spine: cervical ROM normal and No Cervical spine tenderness Thoracic/Lumbar Spine: thoraco-lumbar ROM normal, No pain with thoraco-lumbar ROM, No thoracic spinal tenderness and No lumbar spinal tenderness Skin General: warm and dry. Normal skin color. Normal skin turgor Lesions: Dime-size round, slightly raised, brown/dark brown lesion to the right lower abdomen, no overt infection Rashes: no rashes Trauma: no lacerations or abrasions Wounds: no wounds Nails: normal Neuro General: patient oriented x3, gait normal and CN's II-XI intact bilaterally Cranial nerves: Yes Equal, round and reactive pupils present Cognition (Neuro): normal cognition Gait exam (Neuro): Normal gait present Motor exam (neuro): 5/5 motor strength present throughout Sensory Exam: No Sensory deficit (Neuro) Deep tendon reflexes (DTR's): Right patellar reflex intensity grade: 2+ and Left patellar reflex intensity grade: 2+ Extrem General: Yes normal to inspection, No edema and No calf tenderness Psych Appearance: grossly normal Affect: normal affect Attitude: cooperative Thought process: Normal thought process present Coding Level of Care Code Est Pt Prev Care 40-64y(77500) Diagnoses Normal physical exam Z00.00 Anxiety and depression F41.9; F32.A Skin lesion L98.9 Elevated LDL cholesterol level E78.00 Fatigue R53.83 Vaccine counseling Z71.85 Additional Codes PHQ-9 - 04889 - PHQ-9 Billing: Yes ([id number]) SANDIE-7 Assessment Billing - SANDIE-7 Assessment Tool: SANDIE-7 Assessment 19157 ([id number]) Assessment & Plan Assessment & Plan (1) Normal physical exam: Code(s): Z00.00 - Encounter for general adult medical examination without abnormal findings Category: Medical Plan: No significant functional limitation noted. Healthy diet and routine exercise encouraged. Advised to perform fasting lipid panel blood work 2-3 days before next visit. Follow-up in 3 months for elevated LDL, anxiety, and depression. Return sooner with symptoms or concerns. Verbalized understanding and agreed with treatment plan. (2) Anxiety and depression: Code(s): F41.9 - Anxiety disorder, unspecified; F32.A - Depression, unspecified Category: Medical Plan: Controlled anxiety and depressive symptoms. PHQ-9 and SANDIE-7 scores are normal. Continue current treatment regimen. Routine exercise encouraged. Follow-up in 3 months or sooner with symptoms or concerns. Verbalized understanding and agreed with treatment plan (3) Skin lesion: Code(s): L98.9 - Disorder of the skin and subcutaneous tissue, unspecified Category: Medical Plan: Painless, non itchy lesion to right lower abdomen x 15 years. Dime-size round, slightly raised, brown/dark brown lesion to the right lower abdomen, no overt infection. She was recently referred to dermatology and has an appointment in July 2025. (4) Elevated LDL cholesterol level: Code(s): E78.00 - Pure hypercholesterolemia, unspecified Category: Medical Plan: Recent LDL level is slightly elevated, 105. Advised to limit foods high in saturated fat and avoid foods high in trans fat. Routine exercise encouraged. Fast for 10-12 hours, may drink water, and perform lipid panel blood work 2-3 days before next visit. Follow-up in 3 months. Verbalized understanding and agreed with treatment plan. (5) Fatigue: Code(s): R53.83 - Other fatigue Category: Medical Plan: She has been experiencing daily fatigue for the past several months. Normal CBC and TSH level. Will check vitamin-D level and make changes as needed. Routine exercise encouraged. Verbalized understanding and agreed with treatment plan. (6) Vaccine counseling: Code(s): Z71.85 - Encounter for immunization safety counseling Category: Medical Plan: She has never been vaccinated for shingles or pneumonia. Encouraged to get vaccinated for both shingles and pneumonia. She may get the vaccine from the local pharmacy. Verbalized understanding and agreed with the plan. Orders: Orders Lipid Panel 3 Months E78.00 - Pure hypercholesterolemia, unspecified Vitamin D 25-OH Total Today R53.83 - Other fatigue
[2024-12-23 08:04] VITALS: BP 115/59; PULSE 77; RESP 16; TEMP 36.5; O2SAT 95; BMI 24.7
== END 2024-12-23 08:35 | disposition home or self-care (01) ==
LOC: HO.HMCFM 07:46
PROVIDERS: PCP Nurse Practitioner Family; Visit Provider Nurse Practitioner Family
DX: Z00.00 Encounter for general adult medical examination without abnormal findings (principal); F41.9 Anxiety disorder, unspecified; F32.A Depression, unspecified; L98.9 Disorder of the skin and subcutaneous tissue, unspecified; E78.00 Pure hypercholesterolemia, unspecified; R53.83 Other fatigue; Z71.85 Encounter for immunization safety counseling

== ENCOUNTER → 2024-12-23 07:46 | Outpatient (BNVA) | payer BC, SELFPAY | PROVIDERS: PCP Nurse Practitioner Family; Visit Provider Nurse Practitioner Family | DX: Z00.00 Encounter for general adult medical examination without abnormal findings (principal); F41.9 Anxiety disorder, unspecified; F32.A Depression, unspecified; L98.9 Disorder of the skin and subcutaneous tissue, unspecified; E78.00 Pure hypercholesterolemia, unspecified; R53.83 Other fatigue; Z71.85 Encounter for immunization safety counseling | CPT/HCPCS: 96127 ==

== ENCOUNTER 2025-01-04 18:58 | Emergency (ER) | payer OTHER, SELFPAY ==
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
--- NOTE | ~2025-01-04 | XR_ITS ---
CLINICAL HISTORY: pain Lumbar spine three views Comparison: None Findings: No acute fracture or dislocation is demonstrated. Multilevel mild degenerative change noted. Slight L4-5 anterolisthesis, likely chronic. Posterior alignment otherwise normal. No radiopaque foreign bodies noted. Impression: No acute processes This document has been electronically signed by: Dane Rowley MD on 01/04/2025 20:24:20
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
--- NOTE | ~2025-01-04 | US_ITS ---
CLINICAL HISTORY: calf pain Right lower extremity venous duplex ultrasound Study was performed using color and spectral waveform analysis. Comparison: None Findings: Visualized deep veins are fully compressible with normal flow and augmentation. No popliteal cyst. No significant adenopathy. Impression: Right lower extremity venous duplex ultrasound negative for DVT This document has been electronically signed by: Dane Rowley MD on 01/04/2025 20:37:06
[2025-01-04 19:00] VITALS: BP 131/51; PULSE 71; RESP 20; TEMP 36.1; O2SAT 100; BMI 24.3
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
[2025-01-04 20:52] VITALS: BP 129/78; PULSE 70; RESP 20; TEMP 36.3; O2SAT 100
[2025-01-04 21:07] VITALS: BP 129/78; PULSE 70; RESP 20; TEMP 36.3; O2SAT 100
== END 2025-01-04 21:11 | disposition home or self-care (01) ==
PROVIDERS: Emergency Provider Emergency Medicine Emergency Medical Services; PCP Nurse Practitioner Family
DX: S13.4XXA Sprain of ligaments of cervical spine, initial encounter (principal); S86.911A Strain of unspecified muscle(s) and tendon(s) at lower leg level, right leg, initial encounter; M54.2 Cervicalgia; M54.50 Low back pain, unspecified; R60.0 Localized edema; R51.9 Headache, unspecified; V43.52XA Car driver injured in collision with other type car in traffic accident, initial encounter; Y93.9 Activity, unspecified; Y92.488 Other paved roadways as the place of occurrence of the external cause; Y99.8 Other external cause status
CPT/HCPCS: 70450; 72100; 72125; 93971; 99282; 99284

== ENCOUNTER → 2025-01-04 19:08 | Outpatient (BNV) | payer BC, SELFPAY | PROVIDERS: PCP Nurse Practitioner Family; Visit Provider Radiology Diagnostic Radiology | DX: M54.2 Cervicalgia (principal); M54.50 Low back pain, unspecified; M79.661 Pain in right lower leg | CPT/HCPCS: 70450; 72100; 72125; 93971 ==

== ENCOUNTER 2025-01-07 10:09 | Outpatient (AMB) | payer OTHER, BC, SELFPAY ==
[2025-01-07 10:20] VITALS: BP 110/72; PULSE 73; O2SAT 98; BMI 24.3
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
== END 2025-01-07 11:47 | disposition home or self-care (01) ==
LOC: HO.HMCWIC 10:09
PROVIDERS: PCP Nurse Practitioner Family; Visit Provider Nurse Practitioner Family
DX: S13.4XXA Sprain of ligaments of cervical spine, initial encounter (principal); V89.2XXA Person injured in unspecified motor-vehicle accident, traffic, initial encounter; G44.319 Acute post-traumatic headache, not intractable; F07.81 Postconcussional syndrome

== ENCOUNTER → 2025-01-07 10:09 | Outpatient (BNVA) | payer BC, SELFPAY | PROVIDERS: PCP Nurse Practitioner Family; Visit Provider Nurse Practitioner Family ==

== ENCOUNTER 2025-01-13 10:50 | Outpatient (AMB) | payer OTHER, BC, SELFPAY ==
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
[2025-01-13 10:56] VITALS: BP 107/63; PULSE 65; RESP 16; TEMP 36.9; O2SAT 98; BMI 24.2
== END 2025-01-13 11:19 | disposition home or self-care (01) ==
LOC: HO.HMCFM 10:50
PROVIDERS: PCP Nurse Practitioner Family; Visit Provider Nurse Practitioner Family
DX: G44.319 Acute post-traumatic headache, not intractable (principal); H93.12 Tinnitus, left ear

== ENCOUNTER → 2025-01-13 10:50 | Outpatient (BNVA) | payer OTHER, BC, SELFPAY | PROVIDERS: PCP Nurse Practitioner Family; Visit Provider Nurse Practitioner Family | DX: Z13.89 Encounter for screening for other disorder (principal) ==

== ENCOUNTER 2025-02-03 09:53 | Outpatient (AMB) | payer OTHER, BC, SELFPAY ==
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
[2025-02-03 10:04] VITALS: BP 120/59; PULSE 65; RESP 16; TEMP 36.9; O2SAT 100; BMI 24.5
== END 2025-02-03 10:26 | disposition home or self-care (01) ==
LOC: HO.HMCFM 09:55
PROVIDERS: PCP Nurse Practitioner Family; Visit Provider Nurse Practitioner Family
DX: G44.319 Acute post-traumatic headache, not intractable (principal); H93.13 Tinnitus, bilateral; R42 Dizziness and giddiness

== ENCOUNTER → 2025-02-03 09:53 | Outpatient (BNVA) | payer OTHER, BC, SELFPAY | PROVIDERS: PCP Nurse Practitioner Family; Visit Provider Nurse Practitioner Family ==

== ENCOUNTER → 2025-03-22 13:08 | Outpatient (BNVA) | payer OTHER, SELFPAY | PROVIDERS: PCP Nurse Practitioner Family; Visit Provider Physician Assistant | DX: S61.214A Laceration without foreign body of right ring finger without damage to nail, initial encounter (principal); W26.9XXA Contact with unspecified sharp object(s), initial encounter | CPT/HCPCS: 12001; 99203 ==

== ENCOUNTER 2025-03-24 06:35 | Outpatient (REF) | payer BC, SELFPAY ==
[2025-03-24 07:39] LABS: Appearance Urine Clear; Color Urine Yellow; Glucose Urine UA Negative (Negative); Leukocyte Esterase Urine Negative (Negative); Nitrite Urine Negative (Negative); PH 5.5 (5.0-9.0); Urine Blood Negative (Negative); Urine Ketones Negative (Negative); Urine Protein Negative (Neg-Trace)
[2025-03-24 07:48] LABS: Cholesterol 188 mg/dL (<200); HDL Cholesterol 57 mg/dL (>40); LDL Cholesterol Calculated 119 mg/dL (<100); Triglycerides 60 mg/dL (<150)
[2025-03-24 08:06] LABS: Vitamin D 25-OH Total 44.7 ng/mL (>30)
== END 2025-03-24 06:36 | disposition home or self-care (01) ==
LOC: HO.LAB 06:35
PROVIDERS: PCP Nurse Practitioner Family; Visit Provider Nurse Practitioner Family
DX: Z00.00 Encounter for general adult medical examination without abnormal findings (principal); E78.00 Pure hypercholesterolemia, unspecified; R53.83 Other fatigue
CPT/HCPCS: 36415; 80061; 81003; 82306

== ENCOUNTER → 2025-03-24 11:41 | Outpatient (BNVA) | payer OTHER, SELFPAY | PROVIDERS: PCP Nurse Practitioner Family; Visit Provider Physician Assistant | DX: S61.214A Laceration without foreign body of right ring finger without damage to nail, initial encounter (principal); W26.9XXA Contact with unspecified sharp object(s), initial encounter | CPT/HCPCS: 99213 ==

== ENCOUNTER 2025-03-28 09:29 | Outpatient (AMB) | payer BC, SELFPAY ==
[2025-03-28 09:54] VITALS: BP 104/63; PULSE 90; TEMP 37; O2SAT 97; BMI 24.7
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
== END 2025-03-28 10:53 | disposition home or self-care (01) ==
PROVIDERS: PCP Nurse Practitioner Family; Visit Provider Physician Assistant Medical
DX: J01.90 Acute sinusitis, unspecified (principal)

== ENCOUNTER → 2025-03-28 09:29 | Outpatient (BNVA) | payer BC, OTHER, SELFPAY | PROVIDERS: PCP Nurse Practitioner Family; Visit Provider Physician Assistant Medical | DX: Z13.89 Encounter for screening for other disorder (principal) ==

== ENCOUNTER 2025-04-04 08:25 | Outpatient (AMB) | payer BC, SELFPAY ==
--- NOTE | 2025-04-04 08:34 | MHC.OFFWIV ---
Intake Vital Signs 04/04/25 08:35 Height 5 ft 2 in Weight 135 lb 2 oz BMI 24.7 BP 92/60 Blood Pressure Location Rt brachial Position Sitting Pulse 68 Pulse Source Pulse Oximeter Temp 98.9 F Temp Source Oral Pulse Oximetry (%) 98 Oxygen Delivery Method Room Air Intake Visit Reasons: EP Sinus infection Patient Tobacco Use Status: Never used Tobacco Photo Printer Required: No Is last menstrual period known: Yes Post menopausal: No Patient : No Allergies oxycodone Allergy (Severe, Verified 04/04/25 08:38) Vomiting prochlorperazine (From Compazine) Allergy (Mild, Verified 04/04/25 08:38) could not move her eyes Do you need a note to return to daycare/school/sports/work: No HPI HPI Comments History of Present Illness Details History - The patient is a 54-year-old female presenting with persistent symptoms of a viral upper respiratory infection and sinusitis. - Symptoms began two weeks ago with a sore throat and cold, progressing to a sinus infection. - Amoxicillin was prescribed but did not alleviate symptoms, indicating a viral cause. - Current symptoms include congestion, cough, exhaustion, and sinus pressure, with pain exacerbated by walking. - The patient has been using [id number] cold medications, acetaminophen, and Flonase, with limited relief. - The patient reports using a neti pot daily, which has been effective in clearing nasal discharge. - No history of asthma or COPD, and the patient does not smoke or vape. - The patient experiences shortness of breath upon exertion, such as climbing stairs. - Deneis fevers. Physical Exam General: Cooperative, healthy appearing, comfortable and no acute distress Orientation/consciousness: Patient oriented x3 Limitations: No limitations Head: Normal to inspection Ears: Hearing grossly normal bilaterally, external ears normal and TM's normal bilaterally Nose: Normal external nose present, Normal nares present and No nasal discharge present Face and sinus: Normal facial exam and Sinuses tender Mouth: Normal oral and palatal mucosa present and moist mucous membranes Throat: Tonsils normal, uvula midline. Posterior oropharynx erythema, no exudates, cobblestoning present Eyes: Appearance normal, both eyes and all related structures Neck: Normal visual inspection, full ROM Respiratory: Clear to auscultation bilaterally. Normal respiratory effort, able to speak in complete sentences, Actively coughing, no respiratory distress, not tachypneic, no tripod positioning and no use of accessory muscles Cardiovascular: Regular rate and rhythm. Normal S1 and S2 Skin: No rashes or lesions noted Neuro: Patient oriented x3 Extremities: Normal to inspection and Yes no clubbing, cyanosis or edema PFSH Medical History DJD of left shoulder Anxiety and depression Surgical History History of appendectomy History of tubal ligation Family History Father No problems noted. Mother Cervical disc disease Back pain Brother Down syndrome Hypertension Osteoarthritis Social History Household Members: Significant Other Household Members Other:: Dog Housing: House Are you a primary resident care technician to a significant other at home: No Do you presently have visiting nurse or other home services: No 75 years or older and lives alone: No Alcohol intake: current Alcohol intake frequency: holidays/special occasions only Patient Tobacco Use Status: Never used Tobacco e-Cigarette/Vaping Use: Never Used Second Hand Smoke Exposure: No Patient : No service: No Current occupational status: employed 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 Current occupational exposures/hazards: No Sexual orientation: Unable to collect Gender identity: Unable to collect Cognitive needs: No Hearing needs: Yes Vision needs: No Review of Systems Const All systems reviewed & are unremarkable except as noted in HPI and below Physical Exam Vital Signs: Last Vital Signs Temp 98.9 F 04/04/25 08:35 Pulse 68 04/04/25 08:35 BP 92/60 04/04/25 08:35 Pulse Ox 98 04/04/25 08:35 Oxygen Delivery Method Room Air 04/04/25 08:35 BMI result Body Mass Index 24.7 Assessment & Plan Assessment & Plan (1) Acute viral sinusitis: Code(s): J01.90 - Acute sinusitis, unspecified; B97.89 - Other viral agents as the cause of diseases classified elsewhere Plan: - VSS, pt well appearing and PE remarkable for cobblestoning and sinus tenderness. - Initiate prednisone 20 mg daily for five days to alleviate sinus pressure and pain. - Continue using Flonase twice daily, following neti pot use, to enhance sinus drainage. - Recommend starting Xyzal for allergic rhinitis management, with a note to change allergy medications every six to eight months. - Prescribe benzonatate for cough management, to be taken at night to improve sleep quality. Patient was informed and verbally consented to the use of an ambient scribe for clinic note documentation during this visit Medications: New prednisone 20 mg PO QAM 5 tabs 0RF benzonatate 200 mg PO BEDTIME PRN 10 caps 0RF cough Coding Level of Care Code Est Pt Level 3 (98396) Diagnoses Acute viral sinusitis J01.90; B97.89
[2025-04-04 08:35] VITALS: BP 92/60; PULSE 68; TEMP 37.2; O2SAT 98; BMI 24.7
== END 2025-04-04 08:57 | disposition home or self-care (01) ==
PROVIDERS: PCP Nurse Practitioner Family; Visit Provider Physician Assistant
DX: J01.90 Acute sinusitis, unspecified (principal); B97.89 Other viral agents as the cause of diseases classified elsewhere

== ENCOUNTER 2025-04-25 08:52 | Outpatient (AMB) | payer BC, SELFPAY ==
--- NOTE | 2025-04-25 08:57 | A.OFFPC_ITS ---
Vital Signs 04/25/25 09:02 Height 5 ft 2 in Weight 135 lb 8 oz BMI 24.8 BP 109/51 L Blood Pressure Location Lt brachial Position Sitting Respiration 16 Pulse 69 Pulse Source Pulse Oximeter Temp 97.9 F Temp Source Oral Pulse Oximetry (%) 97 Oxygen Delivery Method Room Air Intake Visit Reasons: 3 mos elevated LDL, anxiety, depression Intake Note: patient here for 3 month follow up on elevated LDL, anxiety and depression House Carpenter Required: No Is last menstrual period known: Yes Last menstrual period: 11/30/24 Post menopausal: No Patient : No Allergies oxycodone Allergy (Severe, Verified 04/25/25 09:08) Vomiting prochlorperazine (From Compazine) Allergy (Mild, Verified 04/25/25 09:08) could not move her eyes Medication List - Last Reconciled 04/25/25 by Jaylan Fofana CNP cyclobenzaprine 10 mg PO TID PRN fluticasone propionate 50 mcg/actuation (Flonase Allergy Relief) 1 spray intranasal DAILY hydroxyzine HCl 25 mg PO TID PRN 30 days norethindrone ac-eth estradiol 1-5 mg-mcg (Fyavolv) 1 tab PO DAILY Tobacco use date assessed: 04/25/25 Dental Screening Dental Screen Date: 04/25/25 Did you have a dental visit in the last 12 months?: Yes Did you have a dental problem in the last 6 months where you did not have access to dental care?: No Was dental information given to patient?: Patient has dentist HPI HPI Comments History of Present Illness Details 54-year-old female presents for elevated LDL, anxiety, and depression follow-up. She admits to taking hydroxyzine as prescribed without adverse reactions. Reports controlled anxiety and depressive symptoms. She notes that she has been making healthy lifestyle changes. She offers no complaints and denies acute symptoms at this time. [facility] Medical History DJD of left shoulder Anxiety and depression Surgical History History of appendectomy History of tubal ligation Family History Father No problems noted. Mother Cervical disc disease Back pain Brother Down syndrome Hypertension Osteoarthritis Social History Household Members: Significant Other Household Members Other:: Dog Housing: House Are you a primary customer care representative to a significant other at home: No Do you presently have visiting nurse or other home services: No 75 years or older and lives alone: No Alcohol intake: current Alcohol intake frequency: holidays/special occasions only Patient Tobacco Use Status: Never used Tobacco e-Cigarette/Vaping Use: Never Used Second Hand Smoke Exposure: No service: No Current occupational status: employed 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 1. Little interest or pleasure in doing things: not at all 2. Feeling down, depressed, or hopeless: not at all 3. Trouble falling or staying asleep, or sleeping too much: several days 4. Feeling tired or having little energy: several days 5. Poor appetite or overeating: several days 6. Feeling bad about yourself - or that you are a failure or have let yourself or your family down: not at all 7. Trouble concentrating on things, such as reading the newspaper or watching television: several days 8. Moving or speaking so slowly that other people could have noticed. Or the opposite - being so fidgety or restless that you have been moving around a lot more than usual: not at all 9. Thoughts that you would be better off or of hurting yourself in some way: not at all Total score: 4 Depression Screening Interpretation: Negative Depression Screening Done: Yes 37453 - PHQ-9 Billing: Yes Source: Developed by Drs. Cuba Valdez, Sade Molina, Tony Berrios and colleagues, with an educational rodrick from [employer]. Thrive Questionnaire Date Thrive assessed: 11/23/24 I am a: Patient What is your living situation today?: I have a steady place to live Within the past 12 months, did the food you bought not last and you didn't have the money to get more?: Never true Within the past 12 months, did you worry whether your food would run out before you got money to buy more?: Never true Do you have trouble paying for medicines?: No Do you have trouble getting transportation to medical appointments?: No Do you have trouble paying your heating and electricity bill?: No Do you have trouble taking care of your child, family member or friend?: No Do you have trouble with day-to-day activities such as bathing, preparing meals, shopping, managing finances, etc.?: No Are you currently unemployed and looking for a job?: No Are you interested in more education?: No Please select the resources that you would like help with: None Currently or been in a relationship where the following occur: No concerns reported THRIVE Score: 0 SANDIE-7 AMB Questionnaire SANDIE-7 Date SANDIE - 7 assessed: 04/25/25 Feeling nervous, anxious, or on edge: 1 = Several days Not being able to stop or control worryin = Several days Worrying too much about different things: 1 = Several days Trouble relaxin = Several days Being so restless that it is hard to sit still: 1 = Several days Becoming easily annoyed or irritable: 2 = More than half the days Feeling afraid as if something awful might happen: 0 = Not at all Total SANDIE-7 score (0-4 normal; 5-9 mild; 10-14 moderate; 15-21 severe): 7 Source: Developed by Drs. Cuba Valdez, Sade Molina, Tony Berrios and colleagues, with an educational rodrick from [employer]. Review of Systems Const Details: Const Denies chills, Denies fatigue, Denies fever(s), Denies headache(s) and Denies weakness ENT Denies dizziness and Denies headache(s) Card Denies chest pain, Denies lightheadedness, Denies dyspnea and Denies other (Palpitations) Resp Denies cough, Denies dyspnea, Denies wheezing and Denies other ( shortness of breath) GI Denies abdominal pain, Denies melena, Denies hematochezia, Denies change in bowel habits, Denies dyspepsia and Denies nausea Denies hematuria and Denies dysuria Musc Denies abnormal gait, Denies myalgias, Denies arthralgias, Denies numbness and Denies tingling Skin/Breast Denies rash, Denies unusual bruising and Denies wounds Neuro Denies abnormal gait, Denies dizziness, Denies headache(s), Denies memory loss, Denies numbness, Denies Sensory deficit (Neuro), Denies tingling and Denies w eakness Psych Denies anxiety, Denies depression, Denies memory loss Endo Denies cold intolerance, Denies fatigue, Denies heat intolerance, Denies poly dipsia and Denies polyuria Aller/Immun Denies wheezing Physical exam (Primary Care) Vital Signs: Last Vital Signs Temp 97.9 F 04/25/25 09:02 Pulse 69 04/25/25 09:02 Resp 16 04/25/25 09:02 BP 109/51 L 04/25/25 09:02 Pulse Ox 97 04/25/25 09:02 Oxygen Delivery Method Room Air 04/25/25 09:02 BMI result Body Mass Index 24.8 Tobacco/Smoking Status: Tobacco use Status Tobacco use date assessed 02/03/25 04/25/25 09:00 Patient Tobacco Use Status Never used Tobacco 04/25/25 09:00 e-Cigarette/Vaping Use Never Used 04/25/25 09:00 Depression Screening Interpretation: Negative Thrive Assessment: Date of Thrive Assessment Date Thrive assessed 11/23/24 04/25/25 09:00 Currently or been in a relationship where the following occur: No concerns reported Const Other: General: no acute distress and well developed Nutritional Appearance: well nourished Orientation/consciousness: patient oriented x3 HENMT Head: Yes normocephalic and Yes atraumatic Eyes General: appearance normal, both eyes and all related structures Pupils: Equal, round and reactive pupils present EOM: EOMs intact bilaterally Resp Effort & Inspection: normal respiratory effort Auscultation: clear to auscultation bilaterally Cardio Rate: regular rate Rhythm: regular rhythm Heart sounds: S1 normal heart sound present, S2 normal heart sound present, no gallops, no murmurs and no rubs GI Palpation (GI): No Abdominal aortic bruit present, Soft to palpation, nontender, No hepatosplenomegaly present and No Rebound tenderness present Auscultation: normal bowel sounds General: Yes no CVA tenderness Back/Spine/Pelvis Back: no CVA tenderness Cervical Spine: cervical ROM normal and No Cervical spine tenderness Thoracic/Lumbar Spine: thoraco-lumbar ROM normal, No pain with thoraco-lumbar ROM, No thoracic spinal tenderness and No lumbar spinal tenderness Extrem General: Yes normal to inspection, No edema and No calf tenderness Skin General: warm and dry. Normal skin color. Normal skin turgor Neuro General: patient oriented x3, gait normal and no focal neuro deficit Cranial nerves: Yes Equal, round and reactive pupils present Cognition (Neuro): normal cognition Gait exam (Neuro): Normal gait present Sensory Exam: No Sensory deficit (Neuro) Psych Appearance: grossly normal Affect: normal affect Attitude: cooperative Thought process: Normal thought process present Coding Level of Care Code Est Pt Level 3 (85088) Diagnoses Elevated LDL cholesterol level E78.00 Anxiety and depression F41.9; F32.A Additional Codes PHQ-9 - 96450 - PHQ-9 Billing: Yes ([id number]) Assessment & Plan Assessment & Plan (1) Elevated LDL cholesterol level: Code(s): E78.00 - Pure hypercholesterolemia, unspecified Category: Medical Plan: Recent lab results reviewed with the patient, unremarkable findings except for slightly elevated LDL, 119. Triglycerides, total cholesterol, and HDL levels are normal. Advised to limit foods high in saturated fat and avoid foods high in trans fat. Routine exercise encouraged. Will monitor lipid panel levels annually or as needed. Verbalized understanding and agreed with the plan. (2) Anxiety and depression: Code(s): F41.9 - Anxiety disorder, unspecified; F32.A - Depression, unspecified Category: Medical Plan: She reports controlled anxiety and depressive symptoms. SANDIE-7 score revealed mild anxiety. PHQ-9 score is normal. Continue current treatment regimen. Routine exercise encouraged. Follow-up in 4 months or sooner with worsening or new symptoms. Verbalized understanding and agreed with the plan.
[2025-04-25 09:02] VITALS: BP 109/51; PULSE 69; RESP 16; TEMP 36.6; O2SAT 97; BMI 24.8
== END 2025-04-25 09:17 | disposition home or self-care (01) ==
LOC: HO.HMCFM 08:53
PROVIDERS: PCP Nurse Practitioner Family; Visit Provider Nurse Practitioner Family
DX: E78.00 Pure hypercholesterolemia, unspecified (principal); F41.9 Anxiety disorder, unspecified; F32.A Depression, unspecified

== ENCOUNTER → 2025-04-25 08:52 | Outpatient (BNVA) | payer BC, SELFPAY | PROVIDERS: PCP Nurse Practitioner Family; Visit Provider Nurse Practitioner Family | DX: E78.00 Pure hypercholesterolemia, unspecified (principal); F32.A Depression, unspecified; F41.9 Anxiety disorder, unspecified | CPT/HCPCS: 96127 ==

== ENCOUNTER 2025-06-19 07:53 | Outpatient (AMB) | payer OTHER, BC, SELFPAY ==
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
[2025-06-19 08:02] VITALS: BP 120/78; PULSE 80; O2SAT 98; BMI 24.9
== END 2025-06-19 09:35 | disposition home or self-care (01) ==
LOC: HO.HSMS 07:54
PROVIDERS: PCP Nurse Practitioner Family; Visit Provider Nurse Practitioner Family
DX: G44.319 Acute post-traumatic headache, not intractable (principal); F07.81 Postconcussional syndrome; H93.13 Tinnitus, bilateral
CPT/HCPCS: 99204

== ENCOUNTER 2025-08-01 15:46 | Outpatient (REF) | payer OTHER, BC, SELFPAY ==
--- NOTE | ~2025-08-01 | MR_ITS ---
EXAMINATION: MR BRAIN IAC PROTOCOL WITHOUT AND WITH CONTRAST CLINICAL INFORMATION: F 07.81. Postconcussion syndrome. COMPARISON: Correlated to CT dated January 04, 2025. TECHNIQUE: Multiplanar, multisequence MRI of the brain IAC protocol was obtained before and after the intravenous administration of 6.0 mL gadolinium based (Gadavist) without reported immediate complications. FINDINGS: There is no susceptibility sequence included in the exam. No restricted diffusion. No acute intracranial hemorrhage, mass effect, midline shift, hydrocephalus or herniation. Aguilar-white matter differentiation is normal. Bilateral, a few, scattered, nonspecific, subcortical and deep white matter hyperintense T2 FLAIR signal foci, centrum semiovale and fischer radiata, both hemispheres. Flow-void signal within the main cerebral vessels is normal. Cochlear vestibular components of the 8th cranial nerves demonstrated no signal abnormality or enhancing lesion. No enhancing lesion in the cerebellopontine angle cistern. Normal anatomic position of the internal jugular bulbs. Sellar/suprasellar region is normal. Craniocervical junction demonstrates a 2 mm descensus of the cerebellar tonsils below foramen magnum. Mild prominence of the CSF in the Meckel's caves. No gross abnormal enhancement in the intra-axial or extra-axial compartment of the cranium based upon the axial T1 sequence. MR/MR head/brain wo/w con IMPRESSION: No vestibular schwannoma. No high riding internal jugular bulb. Low-lying cerebellar tonsils. Hyperintense T2 FLAIR white matter signal foci. This could be seen patients with migraines. No acute brain abnormality. No abnormal enhancing lesion. Electronically signed by: Braxton Kennedy MD 08/02/2025 07:07 AM EDT
== END 2025-08-01 15:47 | disposition home or self-care (01) ==
LOC: HO.MRI 15:46
PROVIDERS: PCP Nurse Practitioner Family; Visit Provider Nurse Practitioner Family
DX: G44.319 Acute post-traumatic headache, not intractable (principal); F07.81 Postconcussional syndrome; H93.13 Tinnitus, bilateral
CPT/HCPCS: 70553; A9585

== ENCOUNTER → 2025-08-01 15:53 | Outpatient (BNV) | payer OTHER, BC, SELFPAY | PROVIDERS: PCP Nurse Practitioner Family; Visit Provider Radiology Diagnostic Radiology | DX: R90.82 White matter disease, unspecified (principal) | CPT/HCPCS: 70553 ==

== ENCOUNTER 2025-08-28 08:21 | Outpatient (AMB) | payer BC, SELFPAY ==
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
[2025-08-28 08:34] VITALS: BP 128/71; PULSE 95; RESP 16; TEMP 36.9; O2SAT 100; BMI 24.7
== END 2025-08-28 08:56 | disposition home or self-care (01) ==
LOC: HO.HMCFM 08:22
PROVIDERS: PCP Nurse Practitioner Family; Visit Provider Nurse Practitioner Family
DX: F41.9 Anxiety disorder, unspecified (principal); F32.A Depression, unspecified; G44.319 Acute post-traumatic headache, not intractable; H93.13 Tinnitus, bilateral

== ENCOUNTER → 2025-08-28 08:21 | Outpatient (BNVA) | payer BC, OTHER, SELFPAY | PROVIDERS: PCP Nurse Practitioner Family; Visit Provider Nurse Practitioner Family | DX: H93.13 Tinnitus, bilateral (principal); G44.319 Acute post-traumatic headache, not intractable; F41.9 Anxiety disorder, unspecified; F32.A Depression, unspecified | CPT/HCPCS: 96127 ==

== ENCOUNTER 2025-10-03 09:00 | Outpatient (RCR) | payer OTHER, BC, SELFPAY ==
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
--- NOTE | 2025-10-04 08:02 | MHC.OT.DC ---
[facility] Office [address] [phone] F: [phone] F: [phone] Occupational Therapy Discharge Note Patient Name: Bria Barker Provider: Carmita Morris Diagnosis: Post concussion syndrome Date of Evaluation: 07/20/25 Date of Discharge: 10/03/25 Treatments to Date: 8 Discharge Status: Achieved Goals Improved Function Independent with HEP Discharge Summary: Almaz demonstrates significant progress in self-management of post-concussion symptoms as evidenced by consistent implementation of recommended strategies (mindful breaks, meditation practice, appropriate exercise modifications). She is consistently utilizing the migraine tony kristofer and had not had a headache for the past 7 days. She has been very diligent with daily meditation which she reports is helping with reactivity, stress management, and headache relief. Collaborated with patient to develop comprehensive reasonable accommodation letter for employer addressing workplace modifications to support optimal function and symptom management. Patient reports improved work tolerance and ability to complete job duties with accommodations in place. At this time, pt has met all LTG's set on admission and is in agreement with discharge at this time. Thank you for this referral! Electronically Signed By: Ellie Kinney MS OTR/L Reviewed/agree with student documentation: Therapist: Please Sign and return to therapist, thank you for your referral.
== END 2025-10-04 08:03 | disposition home or self-care (01) ==
LOC: HO.OTS 09:00
PROVIDERS: PCP Nurse Practitioner Family; Visit Provider Nurse Practitioner Family
DX: G44.319 Acute post-traumatic headache, not intractable (principal); F07.81 Postconcussional syndrome
CPT/HCPCS: 97112; 97165; 97530